=== PATIENT | male | born 1950 | race Caucasian/White ===

== ENCOUNTER 2017-06-27 15:04 | Emergency (ER) | payer MEDICARE, SELFPAY ==
[2017-06-27 15:05] VITALS: BP 154/87; PULSE 71; RESP 16; TEMP 36.2; O2SAT 94; BMI 33.8
--- NOTE | 2017-06-27 15:53 | ED.DCSUM_ITS ---
- ER Visit Summary Date of Service: 06/27/17 Chief Complaint: Constipation History of Present Illness: The patient is a 67 M who states he was trying of a bowel movement today and feels like stool is stuck. He complains of rectal pressure. He denies any bleeding from straining. He has a history of intermittent constipation. He does not take anything daily for this. He states his last normal bowel movement was yesterday. He tells me that his last colonoscopy was not too long ago and was unremarkable. Physical Examination: Vital signs are unremarkable. Head neck examination is normal. Heart is regular rate and rhythm. Lung sounds are clear. Abdomen is soft and distended but nontender to palpation. He has active bowel sounds throughout. Rectal examination reveals stool in the rectal vault at the distal fingertip. No hemorrhoids are noted. Test Results: [] Emergency Department Course and Treatment: Soapsuds enema was performed with good results. Treatment Plan: [] Disposition: Discharge Impression: Constipation This note was generated with [employer] dictation software. It may contain incorrect words, spelling, and punctuation that were not noted in review of the chart prior to signing ED Disposition - Plan for ED Patient: Chief Complaint: Constipation Referrals: Cornel Abreu MD [Primary Care Provider] -
[2017-06-27 17:20] VITALS: BP 129/84; PULSE 77; RESP 16; O2SAT 98
--- NOTE | 2017-06-27 17:29 | ED.DEP ---
ED Disposition - Plan for ED Patient: Disposition: Home or Assisted Living Chief Complaint: Constipation Instructions: ED Constipation Referrals: Cornel Abreu MD [Primary Care Provider] - As Needed
[2017-06-27 17:37] VITALS: BP 117/67; PULSE 58; RESP 16; O2SAT 98
== END 2017-06-27 17:38 | disposition home or self-care (01) ==
PROVIDERS: Emergency Provider Emergency Medicine; Family Provider Family Medicine; PCP Family Medicine
DX: K59.00 Constipation, unspecified (principal); J98.6 Disorders of diaphragm; Z79.899 Other long term (current) drug therapy; Z87.891 Personal history of nicotine dependence
CPT/HCPCS: 99284

== ENCOUNTER 2017-11-12 19:13 | Inpatient (IN) | payer MEDICARE, SELFPAY ==
[2017-11-12] VITALS (9 sets, daily range): BP systolic 123–169; BP diastolic 10–100; PULSE 65–77; RESP 18; TEMP 36.5–36.6; O2SAT 87–98; BMI 33.7; BMI 33.3
--- NOTE | 2017-11-12 19:33 | ED.VISSUMM ---
- ER Visit Summary Date of Service: 11/12/17 Chief Complaint: Chest pain History of Present Illness: The patient is a 67 M presenting with chest pain which started 1.5 hours prior to arrival. Patient has midsternal chest pain radiating through to his back. He denies shortness of breath, nausea, diaphoresis. He states he felt lightheaded but did not pass out. He denies PE/DVT risk factors. He has a history of hypercholesterolemia. He is not a smoker. Physical Examination: Vitals are stable. Patient is afebrile. Alert no acute distress. HEENT exam is unremarkable. Neck is supple. Lungs are clear and equal bilaterally. Heart is regular rate and rhythm. Abdomen is soft nontender nondistended. Extremities are unremarkable. Skin is warm and dry. No focal neurologic deficit. Remainder of exam is unremarkable. Emergency Department Course and Treatment: Patient given aspirin, morphine, Zofran. EKG is sinus rate is [address]-T changes. CBC normal except for hemoglobin 12.2. Chemistries show sodium 133, glucose 127, BUN 21, creatinine 1.77. AST 91, lipase is normal. Troponin 0.022. On reevaluation patient is chest pain-free. Will discuss with the hospitalist for observation. Disposition: Admission Impression: Chest pain This note was generated with [employer] dictation software. It may contain incorrect words, spelling, and punctuation that were not noted in review of the chart prior to signing ED Disposition - Plan for ED Patient: Chief Complaint: Chest Pain Referrals: Cornel Abreu MD [Primary Care Provider] -
[2017-11-12 19:41] LABS: Absolute Lymphocyte Count 0.78 X10^3/ul (0.83-4.51); Absolute Neutrophil Count 8.1 X10^3/uL (2.0-7.7); Basophil# 0.02 X10^3/uL; Basophil% 0.2 % (0-1); Eosinophil# 0.09 X10^3/uL; Eosinophils% 0.9 % (0-5); Hematocrit 37.6 % (40-54); Hemoglobin 12.2 g/dl (13.0-16.5); Lymphocyte # 0.78 X10^3/ul (4.0); Lymphocyte % 8.1 % (19-41); Mean Corp Hgb Conc 32.4 g/gl (32-36); Mean Corpuscular Hgb 31.8 pg (27.0-32.0); Mean Corpuscular Volume 97.9 fL (80-94); Mean Platelet Vol. 9.2 fl (6.2-12.0); Monocyte# 0.64 X10^3/uL; Monocyte% 6.6 % (0-10); Neutrophil # 8.09 X10^3/uL (2.7-7.7); Neutrophil % 84.1 % (47-70); POSITIVE COUNT NO; POSITIVE DIFFERENTIAL NO; POSITIVE MORPHOLOGY NO; Platelet Count 192 K/mm3 (150-450); RBC Distribution Width CV 13.6 % (11.6-14.6); RBC Distribution Width SD 48.6 fl (35.1-43.9); Red Blood Count 3.84 M/mm3 (4.6-6.2); White Blood Count 9.6 K/mm3 (4.4-11.0)
[2017-11-12] MEDS: Aspirin 81 MG TAB.CHEW 324 MG PO (19:46)
[2017-11-12] MEDS: Morphine 4 MG/ML Syringe IV (19:46)
[2017-11-12] MEDS: Ondansetron 4 MG/2 ML Vial IV (19:47)
--- NOTE | 2017-11-12 19:47 | ED.RN ---
COMPUTER IN ROOM NOT WORKING. TRIED TO RESTART, STILL NOT WORKING. COULD NOT SCAN MEDICATIONS.
[2017-11-12 19:58] LABS: AST(SGOT) 91 U/L (15-37); Alanine Aminotransfer ALT/SGPT 49 U/L (16-61); Albumin, Serum 4.3 g/dL (3.2-5.0); Alkaline Phosphatase 65 U/L (45-117); Anion Gap 11 (5-15); BUN 21 mg/dL (7-18); BUN/Creat Ratio 11.9 RATIO (10-20); Bilirubin, Direct 0.11 mg/dL (0.00-0.30); Calcium,Total 8.9 mg/dL (8.5-10.1); Chloride 91 mmol/L (98-107); Creatinine, Serum 1.77 mg/dL (0.70-1.30); EST Glomerular Filtration Rate 41 mL/min (>60); Est Glom Filt Rate - Afr Amer 50 mL/min (>60); Estimated Creatinine Clearance 42.39 ml/min; Globulin 3.3 g/dL (2.2-4.2); Glucose 127 mg/dL (74-106); Lipase 169 U/L (73-393); Potassium 4.4 mmol/L (3.5-5.1); Protein, Total 7.6 g/dL (6.4-8.2); Sodium Level 133 mmol/L (136-145)
--- NOTE | 2017-11-12 20:21 | NURSING ---
Called ED activity specialist, Erica at this time to confirm Pt okay to come to PCU.
--- NOTE | 2017-11-12 20:26 | PCM.HP.STD ---
Problem List (1) Atypical chest pain Status: Acute (2) Dyslipidemia Status: Chronic (3) Hypertension Status: Chronic (4) Right hemidiaphragm palsy Status: Chronic History of Present Illness Date of Admission: 11/12/17 Chief Complaint: Chest pain today The patient is a 67 year old M with history of dyslipidemia came to ER with sudden onset of chest pain about 6 PM today, heaviness in quality, located at midsternal with radiation to back. He felt dizzy, lightheaded but did not pass out. He has chronic shortness of breath secondary to right hemidiaphragm palsy and shortness of breath got little worse at the time of chest pain. No diaphoresis. He denies previous history of coronary artery disease/[place]/arrhythmia. In ED his blood pressure was noted high, 169/10, heart rate 77/min with no hypoxia. Chest x-ray does not show widened mediastinum and reported as no acute chest disease. EKG shows normal sinus rhythm [address]pm with nonspecific [address]-T changes (slight ST elevation in V1 and V2 but less than 0.5 mm) in V1 and V2. Past Medical History Past Medical History (Chronic Problems): Chronic Problems Dyslipidemia (Chronic) Hypertension (Chronic) Right hemidiaphragm palsy (Chronic) Allergies No Known Allergies Allergy (Verified 05/08/13 00:18) Home Medications: Ambulatory Orders Medication Instructions Recorded Albuterol Inhaler [Ventolin Hfa 1 puff INHALATION Q4H PRN PRN 08/07/15 (SP)] Cholecalciferol (VIT D3) [Vitamin 1,000 unit PO DAILY 08/07/15 D] Viola Root [Viola] 1 tab PO DAILY 08/07/15 Ginkgo Biloba 40 mg PO DAILY 08/07/15 Glucosam/Chondroit/C/Manganese 1 each PO DAILY 08/07/15 [Cosamin Ds Capsule] Grape Seed Extract [Grape Seed] 25 mg PO DAILY 08/07/15 Multivitamin [Daily Multiple 1 each PO DAILY 08/07/15 Vitamin] [place] Le[place] Extract 1 tab PO DAILY 08/07/15 Pomagranite Extract 1 tab PO DAILY 08/07/15 Salpameto 1 tab PO DAILY 08/07/15 Termeric 1 tab PO DAILY 08/07/15 Milk Thistle Seed Extract [Milk 87.5 mg PO DAILY 11/12/17 Thistle Extract] Tumeric 1 capsule PO DAILY 11/12/17 Smoking Status: Former smoker - *Family History Paternal History Items: Heart Disease Maternal History Items: Heart Disease Review of Systems Constitutional: Denies: Chills, Fever, Weight Change HEENT: Denies: Head Aches, Sinus Congestion, Sinus Drainage Cardiovascular: Reports: Chest Pain, Chest Pressure, Edema. Denies: Palpitations Respiratory: Reports: Shortness of Breath, Shortness of breath upon exertion. Denies: Cough, Shortness of breath at rest, Sputum production Gastrointestinal: Denies: Abdominal Pain, Nausea, Vomiting Genitourinary: Denies: Dysuria Musculoskeletal: Denies: Joint Pain, Joint Tenderness Skin: Denies: Rash, Wounds Neurological: Denies: Numbness, Tingling, Focal weakness Psychiatric: Denies: Anxiety, Depression, Homicidal Ideations, Suicidal Ideations Hematologic/ Lymphatic: Denies: Easy Bruising, Easy Bleeding VTE Information - Inpt Only VTE Present on Admission: No VTE Mechan Device Prophylaxis: None VTE Pharm Prophylaxis ordered?: Yes Patient Problems: Active and Suspected Problems Atypical chest pain (Acute) - Physical Exam General: Alert, Oriented x3, Cooperative HEENT: Atraumatic, PERRLA, EOMI, Normocephalic Oral: Moist Mucosa Neck: Supple, No JVD, Negative Carotid Bruits, - Lungs: Clear to auscultation, No rhonchi, No wheeze, No rales, Diminished - Air entry diminished in right lung base Cardiovascular: Regular rate, Regular Rhythm, Normal S1, Normal S2, No murmurs, - - Radial pulses on bilaterally symmetrical with equal volume Abdomen: Bowel Sounds Present, Soft, Non Tender, Non-Distended Extremities: Capillary Refill Less than 3 Seconds, Edema Skin: No rashes, No breakdown Musculoskeletal: No Tenderness to Palpation of Joints or Extremities, Arthritic Changes Neurological: Cranial nerves II-XII grossly intact Psych/Mental Status: Normal Affect, Appropriate Vital Signs Temp Pulse Resp BP Pulse Ox 97.7 F L 75 18 123/84 H 88 11/12/17 19:14 11/12/17 20:13 11/12/17 20:13 11/12/17 20:13 11/12/17 20:13 Oxygen Flow Rate (L/min) 2 Oxygen Delivery Method Nasal Cannula Weight: 234 lb 12.677 oz Body Mass Index (BMI) 33.7 Laboratory Tests Past 24 Hrs 11/12/17 11/12/17 19:28 19:28 WBC 9.6 RBC 3.84 L Hgb 12.2 L Hct 37.6 L MCV 97.9 H MCH 31.8 MCHC 32.4 RDW 13.6 RDW Differential 48.6 H Plt Count 192 MPV 9.2 Immature Gran % (Auto) 0.100 Neut % (Auto) 84.1 H Lymph % (Auto) 8.1 L [place] % (Auto) 6.6 Eos % (Auto) 0.9 Baso % (Auto) 0.2 Absolute Neuts (auto) 8.1 H Absolute Lymphs (auto) 0.78 L Total Counted Not Reportable Sodium 133 L Potassium 4.4 Chloride 91 L Carbon Dioxide 31.0 Anion Gap 11 BUN 21 H Creatinine 1.77 H Estim Creat Clear Calc 42.39 Est GFR (MDRD) Af Amer 50 L Est GFR (MDRD) Non-Af 41 L BUN/Creatinine Ratio 11.9 Glucose 127 H Calcium 8.9 Total Bilirubin 0.50 Direct Bilirubin 0.11 AST 91 H ALT 49 Alkaline Phosphatase 65 Troponin I 0.022 Total Protein 7.6 Albumin 4.3 Globulin 3.3 Lipase 169 Assessment/Plan All Active Problems Atypical chest pain (Acute) The patient is a 67 year old M with history of dyslipidemia came to ER with sudden onset of chest pain about 6 PM today, heaviness in quality, located at midsternal with radiation to back. He felt dizzy, lightheaded but did not pass out. He has chronic shortness of breath secondary to right hemidiaphragm palsy and shortness of breath got little worse at the time of chest pain. No diaphoresis. He denies previous history of coronary artery disease/[place]/arrhythmia. In ED his blood pressure was noted high, 169/10, heart rate 77/min with no hypoxia. Chest x-ray does not show widened mediastinum and reported as no acute chest disease. EKG shows normal sinus rhythm [address] nons[address]-T changes (slight ST elevation in V1 and V2 but less than 0.5 mm) in V1 and V2. 1. Atypical chest pain rule out acute coronary syndrome: PHYLLIS risk score 3/7. Patient is being admitted on PCU floor. On ACS protocol with cardiac monitoring, cycle cardiac enzymes, nitro sublingual as needed for chest pain. If troponins are negative, Lexiscan nuclear stress test tomorrow morning. 2. Elevated blood pressure, possible undiagnosed hypertension: Patient is not on any antihypertensive medications, started on lisinopril 10 mg. 3. Dyslipidemia: As per the patient, atorvastatin was discontinued because of abnormal blood test, guessing most rarely because of elevated LFT. AST 91 on the right wrist is normal. CK ordered. Fasting lipid profile tomorrow a.m. Pravastatin 40 mg at bedtime daily. If cholesterols are elevated, pravastatin is to be continue as is the elevation is less than 3 times of normal. Patient denies myalgia. 4. Hyperglycemia, rule out diabetes mellitus: Glucose in BMP is 127. A1c tomorrow a.m. 5. Other chronic comorbidities include chronic right-sided hemidiaphragm palsy, etiology unclear, low vitamin D, bilateral degenerative joint disease: Home medication reconciliation done. Patient is on albuterol inhaler as needed. Patient is on multiple herbal/homeopathic medications [id number]. Hold herbal medications. DVT prophylaxis: On Lovenox 40 mils subcu daily Laboratory Results 11/12/17 19:28: WBC 9.6, RBC 3.84 L, Hgb 12.2 L, Hct 37.6 L, MCV 97.9 H, MCH 31.8, MCHC 32.4, RDW 13.6, RDW Differential 48.6 H, Plt Count 192, MPV 9.2, Immature Gran % (Auto) 0.100, Neut % (Auto) 84.1 H, Lymph % (Auto) 8.1 L, [place] % (Auto) 6.6, Eos % (Auto) 0.9, Baso % (Auto) 0.2, Absolute Neuts (auto) 8.1 H, Absolute Lymphs (auto) 0.78 L, Total Counted Not Reportable 11/12/17 19:28: Sodium 133 L, Potassium 4.4, Chloride 91 L, Carbon Dioxide 31.0, Anion Gap 11, BUN 21 H, Creatinine 1.77 H, Estim Creat Clear Calc 42.39, Est GFR (MDRD) Af Amer 50 L, Est GFR (MDRD) Non-Af 41 L, BUN/Creatinine Ratio 11.9, Glucose 127 H, Calcium 8.9, Total Bilirubin 0.50, Direct Bilirubin 0.11, AST 91 H, ALT 49, Alkaline Phosphatase 65, Troponin I 0.022, Total Protein 7.6, Albumin 4.3, Globulin 3.3, Lipase 169 Code Visit OBSV E&M: [id number] Initial observation care L3
--- NOTE | 2017-11-12 20:32 | HP.PCM_ITS ---
Problem List (1) Atypical chest pain Status: Acute (2) Dyslipidemia Status: Chronic (3) Hypertension Status: Chronic (4) Right hemidiaphragm palsy Status: Chronic History of Present Illness Date of Admission: 11/12/17 Chief Complaint: Chest pain today The patient is a 67 year old M with history of dyslipidemia came to ER with sudden onset of chest pain about 6 PM today, heaviness in quality, located at midsternal with radiation to back. He felt dizzy, lightheaded but did not pass out. He has chronic shortness of breath secondary to right hemidiaphragm palsy and shortness of breath got little worse at the time of chest pain. No diaphoresis. He denies previous history of coronary artery disease/[place]/arrhythmia. In ED his blood pressure was noted high, 169/10, heart rate 77/min with no hypoxia. Chest x-ray does not show widened mediastinum and reported as no acute chest disease. EKG shows normal sinus rhythm [address]-T changes ( slight ST elevation in V1 and V2 but less than 0.5 mm) in V1 and V2. Past Medical History Past Medical History (Chronic Problems): Chronic Problems Dyslipidemia (Chronic) Hypertension (Chronic) Right hemidiaphragm palsy (Chronic) Allergies No Known Allergies Allergy (Verified 05/08/13 00:18) Home Medications: Ambulatory Orders Medication Instructions Recorded Albuterol Inhaler [Ventolin Hfa 1 puff INHALATION Q4H PRN PRN 08/07/15 (SP)] Cholecalciferol (VIT D3) [Vitamin 1,000 unit PO DAILY 08/07/15 D] Viola Root [Viola] 1 tab PO DAILY 08/07/15 Ginkgo Biloba 40 mg PO DAILY 08/07/15 Glucosam/Chondroit/C/Manganese 1 each PO DAILY 08/07/15 [Cosamin Ds Capsule] Grape Seed Extract [Grape Seed] 25 mg PO DAILY 08/07/15 Multivitamin [Daily Multiple 1 each PO DAILY 08/07/15 Vitamin] [place] Le[place] Extract 1 tab PO DAILY 08/07/15 Pomagranite Extract 1 tab PO DAILY 08/07/15 Salpameto 1 tab PO DAILY 08/07/15 Termeric 1 tab PO DAILY 08/07/15 Milk Thistle Seed Extract [Milk 87.5 mg PO DAILY 11/12/17 Thistle Extract] Tumeric 1 capsule PO DAILY 11/12/17 Smoking Status: Former smoker - *Family History Paternal History Items: Heart Disease Maternal History Items: Heart Disease Review of Systems Constitutional: Denies: Chills, Fever, Weight Change HEENT: Denies: Head Aches, Sinus Congestion, Sinus Drainage Cardiovascular: Reports: Chest Pain, Chest Pressure, Edema. Denies: Palpitations Respiratory: Reports: Shortness of Breath, Shortness of breath upon exertion. Denies: Cough, Shortness of breath at rest, Sputum production Gastrointestinal: Denies: Abdominal Pain, Nausea, Vomiting Genitourinary: Denies: Dysuria Musculoskeletal: Denies: Joint Pain, Joint Tenderness Skin: Denies: Rash, Wounds Neurological: Denies: Numbness, Tingling, Focal weakness Psychiatric: Denies: Anxiety, Depression, Homicidal Ideations, Suicidal Ideations Hematologic/ Lymphatic: Denies: Easy Bruising, Easy Bleeding VTE Information - Inpt Only VTE Present on Admission: No VTE Mechan Device Prophylaxis: None VTE Pharm Prophylaxis ordered?: Yes Patient Problems: Active and Suspected Problems Atypical chest pain (Acute) - Physical Exam General: Alert, Oriented x3, Cooperative HEENT: Atraumatic, PERRLA, EOMI, Normocephalic Oral: Moist Mucosa Neck: Supple, No JVD, Negative Carotid Bruits, - Lungs: Clear to auscultation, No rhonchi, No wheeze, No rales, Diminished - Air entry diminished in right lung base Cardiovascular: Regular rate, Regular Rhythm, Normal S1, Normal S2, No murmurs, - - Radial pulses on bilaterally symmetrical with equal volume Abdomen: Bowel Sounds Present, Soft, Non Tender, Non-Distended Extremities: Capillary Refill Less than 3 Seconds, Edema Skin: No rashes, No breakdown Musculoskeletal: No Tenderness to Palpation of Joints or Extremities, Arthritic Changes Neurological: Cranial nerves II-XII grossly intact Psych/Mental Status: Normal Affect, Appropriate Vital Signs Temp Pulse Resp BP Pulse Ox 97.7 F L 75 18 123/84 H 88 11/12/17 19:14 11/12/17 20:13 11/12/17 20:13 11/12/17 20:13 11/12/17 20:13 Oxygen Flow Rate (L/min) 2 Oxygen Delivery Method Nasal Cannula Weight: 234 lb 12.677 oz Body Mass Index (BMI) 33.7 Laboratory Tests Past 24 Hrs 11/12/17 11/12/17 19:28 19:28 WBC 9.6 RBC 3.84 L Hgb 12.2 L Hct 37.6 L MCV 97.9 H MCH 31.8 MCHC 32.4 RDW 13.6 RDW Differential 48.6 H Plt Count 192 MPV 9.2 Immature Gran % (Auto) 0.100 Neut % (Auto) 84.1 H Lymph % (Auto) 8.1 L [place] % (Auto) 6.6 Eos % (Auto) 0.9 Baso % (Auto) 0.2 Absolute Neuts (auto) 8.1 H Absolute Lymphs (auto) 0.78 L Total Counted Not Reportable Sodium 133 L Potassium 4.4 Chloride 91 L Carbon Dioxide 31.0 Anion Gap 11 BUN 21 H Creatinine 1.77 H Estim Creat Clear Calc 42.39 Est GFR (MDRD) Af Amer 50 L Est GFR (MDRD) Non-Af 41 L BUN/Creatinine Ratio 11.9 Glucose 127 H Calcium 8.9 Total Bilirubin 0.50 Direct Bilirubin 0.11 AST 91 H ALT 49 Alkaline Phosphatase 65 Troponin I 0.022 Total Protein 7.6 Albumin 4.3 Globulin 3.3 Lipase 169 Assessment/Plan All Active Problems Atypical chest pain (Acute) The patient is a 67 year old M with history of dyslipidemia came to ER with sudden onset of chest pain about 6 PM today, heaviness in quality, located at midsternal with radiation to back. He felt dizzy, lightheaded but did not pass out. He has chronic shortness of breath secondary to right hemidiaphragm palsy and shortness of breath got little worse at the time of chest pain. No diaphoresis. He denies previous history of coronary artery disease/[place]/arrhythmia. In ED his blood pressure was noted high, 169/10, heart rate 77/min with no hypoxia. Chest x-ray does not show widened mediastinum and reported as no acute chest disease. EKG shows normal sinus rhythm [address]-T changes ( slight ST elevation in V1 and V2 but less than 0.5 mm) in V1 and V2. 1. Atypical chest pain rule out acute coronary syndrome: PHYLLIS risk score 3/7. Patient is being admitted on PCU floor. On ACS protocol with cardiac monitoring , cycle cardiac enzymes, nitro sublingual as needed for chest pain. If troponins are negative, Lexiscan nuclear stress test tomorrow morning. 2. Elevated blood pressure, possible undiagnosed hypertension: Patient is not on any antihypertensive medications, started on lisinopril 10 mg. 3. Dyslipidemia: As per the patient, atorvastatin was discontinued because of abnormal blood test, guessing most rarely because of elevated LFT. AST 91 on the right wrist is normal. CK ordered. Fasting lipid profile tomorrow a.m. Pravastatin 40 mg at bedtime daily. If cholesterols are elevated, pravastatin is to be continue as is the elevation is less than 3 times of normal. Patient denies myalgia. 4. Hyperglycemia, rule out diabetes mellitus: Glucose in BMP is 127. A1c tomorrow a.m. 5. Other chronic comorbidities include chronic right-sided hemidiaphragm palsy , etiology unclear, low vitamin D, bilateral degenerative joint disease: Home medication reconciliation done. Patient is on albuterol inhaler as needed. Patient is on multiple herbal/homeopathic medications [id number]. Hold herbal medications. DVT prophylaxis: On Lovenox 40 mils subcu daily Laboratory Results 11/12/17 19:28: WBC 9.6, RBC 3.84 L, Hgb 12.2 L, Hct 37.6 L, MCV 97.9 H, MCH 31.8, MCHC 32.4, RDW 13.6, RDW Differential 48.6 H, Plt Count 192, MPV 9.2, Immature Gran % (Auto) 0.100, Neut % (Auto) 84.1 H, Lymph % (Auto) 8.1 L, [place] % (Auto) 6.6, Eos % (Auto) 0.9, Baso % (Auto) 0.2, Absolute Neuts (auto) 8.1 H, Absolute Lymphs (auto) 0.78 L, Total Counted Not Reportable 11/12/17 19:28: Sodium 133 L, Potassium 4.4, Chloride 91 L, Carbon Dioxide 31.0 , Anion Gap 11, BUN 21 H, Creatinine 1.77 H, Estim Creat Clear Calc 42.39, Est GFR (MDRD) Af Amer 50 L, Est GFR (MDRD) Non-Af 41 L, BUN/Creatinine Ratio 11.9, Glucose 127 H, Calcium 8.9, Total Bilirubin 0.50, Direct Bilirubin 0.11, AST 91 H, ALT 49, Alkaline Phosphatase 65, Troponin I 0.022, Total Protein 7.6, Albumin 4.3, Globulin 3.3, Lipase 169 Code Visit OBSV E&M: [id number] Initial observation care L3
[2017-11-12 21:21] LABS: BNP,B-Type NATRIURETIC PEPTIDE 34.7 pg/mL (0-100)
[2017-11-12] MEDS: Lisinopril 5 MG Tablet PO (22:21)
[2017-11-12] MEDS: Pravastatin 40 MG Tablet PO ×2 (22:21→23:35)
[2017-11-12] MEDS: Enoxaparin 40 MG/0.4 ML Syringe SC (22:21)
[2017-11-12] MEDS: Carvedilol 6.25 MG Tablet PO (23:35)
[2017-11-12] MEDS: Clopidogrel Bisulfate 300 MG Tablet PO (23:35)
[2017-11-12] MEDS: Nitroglycerin Oint 1 INCH PACKET TRANSDERM. (23:36)
[2017-11-13] VITALS (25 sets, daily range): BP systolic 65–155; BP diastolic 35–90; PULSE 47–98; RESP 14–21; TEMP 36.2–36.8; O2SAT 2–98
[2017-11-13 00:04] LABS: Partial Thromboplast Time 32.7 Seconds (24.1-36.2)
[2017-11-13] MEDS: Lisinopril 5 MG Tablet PO (05:44)
[2017-11-13] MEDS: Aspirin E.C. 81 MG Tablet PO (05:44)
[2017-11-13] MEDS: Clopidogrel Bisulfate 75 MG Tablet PO (05:44)
[2017-11-13] MEDS: Nitroglycerin Oint 1 INCH PACKET TRANSDERM. ×2 (05:44→18:12)
[2017-11-13] MEDS: Carvedilol 6.25 MG Tablet PO (05:44)
[2017-11-13 06:01] LABS: Hematocrit 35.9 % (40-54); Hemoglobin 11.8 g/dl (13.0-16.5); Mean Corp Hgb Conc 32.9 g/gl (32-36); Mean Corpuscular Hgb 32.2 pg (27.0-32.0); Mean Corpuscular Volume 98.1 fL (80-94); Mean Platelet Vol. 9.7 fl (6.2-12.0); Platelet Count 203 K/mm3 (150-450); RBC Distribution Width CV 13.4 % (11.6-14.6); RBC Distribution Width SD 46.9 fl (35.1-43.9); Red Blood Count 3.66 M/mm3 (4.6-6.2); White Blood Count 7.9 K/mm3 (4.4-11.0)
[2017-11-13 06:05] LABS: Scan Indicated on CBC? Y/N NO
[2017-11-13 06:09] LABS: International Normalized Ratio 1.1; Prothrombin Time (Protime)PT. 13.7 SECONDS (11.7-14.9)
[2017-11-13 06:54] LABS: Hemoglobin A1c 5.8 % (4.2-6.3)
[2017-11-13 06:59] LABS: Anion Gap 11 (5-15); BUN 21 mg/dL (7-18); BUN/Creat Ratio 16.2 RATIO (10-20); CPK Total, Creatine Kinase 1431 U/L (39-308); Calcium,Total 8.7 mg/dL (8.5-10.1); Chloride 91 mmol/L (98-107); Cholesterol 208 mg/dL (200); EST Glomerular Filtration Rate 59 mL/min (>60); Est Glom Filt Rate - Afr Amer 71 mL/min (>60); Estimated Creatinine Clearance 57.71 ml/min; Glucose 105 mg/dL (74-106); High Density Lipoprotein 50 mg/dL; Potassium 4.5 mmol/L (3.5-5.1); Sodium Level 132 mmol/L (136-145); Triglycerides 86 mg/dL; Very Low Density Lipoprotein 17 mg/dL (5-40)
[2017-11-13] MEDS: Multivitamins,Therapeutic Tablet 1 TABLET PO (07:45)
[2017-11-13 08:03] LABS: Color, Urine Yellow (Yellow); Glucose, Dipstick Normal (Normal); Ketone-Dipstick Negative (Negative); Leukocyte Esterase-Dipstick Negative /ul (Negative); Nitrite-Dipstick Negative (Negative); Occult Blood-Urine Negative /ul (Negative); Protein-Dipstick 15 mg/dl (Negative); Specific Gravity, Urine 1.025 (1.002-1.030); Urine Bilirubin Dipstick Negative (Negative); Urine Clarity Clear (Clear); Urine Urobilinogen Normal (Normal)
[2017-11-13] MEDS: Acetaminophen 325 MG Tablet 650 MG PO ×2 (09:34→19:44)
--- NOTE | 2017-11-13 10:19 | NURSING ---
this RN received call from Jos PINEDA in pathology laboratory technologist. Jos RN notified this RN that he will be coming to get pt for pathology laboratory technologist in a couple of minutes and for this RN to turn off heparin gtt at this time. heparin gtt turned off and NS set to KVO at this time. Sina BSN RN
--- NOTE | 2017-11-13 10:32 | PCM.PN.HOSP ---
Patient Problems: Active and Suspected Problems Atypical chest pain (Acute) Subjective: Seen and examined. He was admitted with a complaint of chest pain. Initial troponin was negative repeat troponin came back at 0.937 and has been managed for NSTEMI. He was started on aspirin, Plavix and heparin drip. Cardiology is on board and is scheduled for left heart cath later today. Patient seen and examined this morning. His was at his bedside during review. He had no complaints and felt well. Chest pain had resolved he denied any fever or chills, any shortness of breath, abdominal pain, any diarrhea vomiting. He was n.p.o. pending left heart cath later today. 12 point review of systems was otherwise negative. Vitals/I&O's: Vital Signs Temp Pulse Resp BP Pulse Ox 97.6 F L 57 L 16 105/61 97 11/13/17 08:55 11/13/17 08:55 11/13/17 08:55 11/13/17 08:55 11/13/17 08:55 Oxygen Flow Rate (L/min) 2 Oxygen Delivery Method Room Air Weight: 232 lb 2.348 oz Body Mass Index (BMI) 33.3 Intake and Output for Last 24 Hours 11/11/17 11/12/17 11/13/17 23:59 23:59 23:59 Intake Total 213.7 / 213.7 Balance 213.7 / 213.7 General: Alert, Oriented x3, Cooperative, No apparent distress HEENT: Atraumatic, PERRLA, EOMI, Normocephalic Oral: Moist Mucosa Neck: Supple, No JVD, Negative Carotid Bruits Lungs: Clear to auscultation, Normal air movement, No rhonchi, No wheeze, No rales Cardiovascular: Regular rate, Regular Rhythm, Normal S1, Normal S2, No murmurs Abdomen: Bowel Sounds Present, Soft, Non Tender, Non-Distended, No Hepato-splenomegaly, Obese Extremities: No clubbing, No cyanosis, No edema, Capillary Refill Less than 3 Seconds Skin: No rashes, No breakdown Musculoskeletal: No Tenderness to Palpation of Joints or Extremities Lymphatic: No Cervical, Supraclavicular, or Inguinal Adenopathy Neurological: Cranial nerves II-XII grossly intact, Motor Exam 5/5 strength throughout Psych/Mental Status: Normal Affect, Appropriate, Alert and oriented to time, place, person, mood and affect Laboratory Results 11/12/17 22:12: Troponin I 0.937 H* 11/12/17 23:35: APTT 32.7 11/13/17 01:35: Troponin I 3.480 H* 11/13/17 05:40: Sodium 132 L, Potassium 4.5, Chloride 91 L, Carbon Dioxide 30.0, Anion Gap 11, BUN 21 H, Creatinine 1.30, Estim Creat Clear Calc 57.71, Est GFR (MDRD) Af Amer 71, Est GFR (MDRD) Non-Af 59 L, BUN/Creatinine Ratio 16.2, Glucose 105, Calcium 8.7, Total Creatine Kinase 1431 H, Triglycerides 86, Cholesterol 208 H, LDL Cholesterol 141 H, VLDL Cholesterol 17, HDL Cholesterol 50, TSH 127.00 H 11/13/17 05:40: Hemoglobin A1c 5.8 11/13/17 05:40: WBC 7.9, RBC 3.66 L, Hgb 11.8 L, Hct 35.9 L, MCV 98.1 H, MCH 32.2 H, MCHC 32.9, RDW 13.4, RDW Differential 46.9 H, Plt Count 203, MPV 9.7 11/13/17 05:40: PT 13.7, INR 1.1, APTT 122.0 H* 11/13/17 07:45: Urine Color Yellow, Urine Clarity Clear, Urine pH 5.0, Ur Specific [place] 1.025, Urine Protein 15 H, Urine Glucose (UA) Normal, Urine Ketones Negative, Urine Occult Blood Negative, Urine Nitrite Negative, Urine Bilirubin Negative, Urine Urobilinogen Normal, Ur Leukocyte Esterase Negative Current Medications Acetaminophen (Tylenol) 650 mg PO Q6H PRN PRN PRN Reason: pain Last Admin: 11/13/17 09:34 Dose: 650 mg Albuterol Sulfate (Ventolin Aerosols) 2.5 mg INHALATION Q4H PRN PRN PRN Reason: SHORTNESS OF BREATH Aspirin (Ecotrin) 81 mg PO DAILY@0800 [facility] Last Admin: 11/13/17 05:44 Dose: 81 mg Carvedilol (Coreg) 6.25 mg PO BID [facility] Last Admin: 11/13/17 05:44 Dose: 6.25 mg Cholecalciferol (Vitamin D) 1,000 unit PO DAILY [facility] Last Admin: 11/13/17 07:45 Dose: 1,000 unit Clopidogrel Bisulfate (Plavix) 75 mg PO DAILY [facility] Last Admin: 11/13/17 05:44 Dose: 75 mg Heparin Sodium (Porcine) (Heparin Na) 0 unit IV UD PRN PRN Reason: Protocol Heparin Sodium/Sodium Chloride () 25,000 unit in 250 mls @ 15 mls/hr IV .[id number] [facility]; As Directed PRN Reason: Protocol Last Admin: 11/12/17 23:43 Dose: 15 mls/hr Lisinopril (Zestril) 5 mg PO DAILY [facility] Last Admin: 11/13/17 05:44 Dose: 5 mg Multivitamins (Multivitamin) 1 tablet PO DAILYCM [facility] Last Admin: 11/13/17 07:45 Dose: 1 tablet Nitroglycerin (Nitrostat) 0.4 mg SUBLINGUAL Q5M PRN PRN Reason: CHEST PAIN Nitroglycerin (Nitrobid) 1 inch TRANSDERM. Q6 [facility] Last Admin: 11/13/17 05:44 Dose: 1 inch Pravastatin Sodium (Pravachol) 80 mg PO QHS [facility] Sodium Chloride () 5 - 30 ml IV UD PRN PRN Reason: SALINE FLUSH Medical Necessity - Tobacco Use Smoking Status: Former smoker Assessment/Plan All Active Problems Atypical chest pain (Acute) 1. NSTEMI Was admitted with a complaint of chest pain. Initial troponin was negative but subsequent troponin trended up to 0.937->3.[address] elevation in V1 and V2 but this was less than 0.5 mm. Started on heparin drip and given loading dose of Plavix after rising troponin. Lisinopril 10 mg daily and beta-rick. cardiology on board. For left heart cath later today. Currently n.p.o. will order 2D echo 2. Newly diagnosed hypertension She does have a history of high blood pressure. Blood pressure was elevated on admission. Was started on lisinopril 10 mg daily. Blood pressure this morning is 105/61. Will monitor. 3. Hyperlipidemia was on pravastatin 40mg qhs on admission States was DC'd due to abnormal labs. Liver enzymes were only slightly elevated. CPK checked was 1431. was put on pravastatin 80mg qhs. Will hold o/a of rhabdomyolysis lipid panel: cholesterol-208, LDL-141 4. Rhabdomyolysis CPK is 1431; newly diagnosed hypothyroidism could also be a contributory factor. We will give IV fluids and monitor. 5 Hyperglycemia random blood sugar was 127. A1C ordered was 5.8, ruling out DM will monitor 6. hypothyroidism patient has a flat affect and though responsive when spoken to, seemed lethargic TSH checked was 127. will check free T4 and start synthroid 7. Vitamin D deficiency will replace 8. Degenerative joint disease: Stable. 9. DVT Prophylaxis: On heparin drip This note was generated with [employer] dictation software. It may contain incorrect words, spelling, and punctuation that were not noted in checking the note before signing. Code Visit Inpatient E&M: 40771 Subs Hosp L3
[2017-11-13 11:24] LABS: T4 Free Direct 0.16 ng/dL (0.76-1.46)
--- NOTE | 2017-11-13 11:44 | NURSING ---
report called to Casi PINEDA in ICU
--- NOTE | 2017-11-13 12:52 | CASEMGMT ---
[facility], the following are in-network tertiary facilities: [facility] and . Jasmina PINEDA CM
--- NOTE | 2017-11-13 13:59 | PCM.CONS.C ---
Problem List (1) Non-STEMI (non-ST elevated myocardial infarction) Status: Acute (2) Coronary artery disease Status: Acute (3) LV dysfunction Status: Acute (4) Dyslipidemia Status: Chronic (5) Hypertension Status: Chronic (6) Right hemidiaphragm palsy Status: Chronic Reason for Consult Date of Consultation: 11/13/17 Reason for Consultation: Hyperlipidemia, hypertension, non-STEMI, chest pain, coronary artery disease, LV dysfunction, right-sided diaphragmatic palsy, hypothyroidism History of Present Illness: The patient is a 67 year old M, nondiabetic, previous smoker who quit more than 10 years ago after an 8-pack-year history, with hypertension, hypercholesterolemia apparently with difficulty with statins in the past due to elevated LFTs, no previous known coronary artery disease. Patient also interestingly has a history of right-sided hemidiaphragmatic palsy due to a pneumonia several years ago according to the family. Upon meeting the patient I noted that he had slow mentation, slow speech, and gave slow answers to his questions. First I thought it was due to either receiving morphine, benzodiazepine, or Benadryl but he had received none of these in the recent past. Upon further research his TSH is markedly elevated at 124, and his T4 is 0.16 indicating he is significantly hypothyroid. In addition after talking with his and family it appears that he has had gradually slowing of his mentation, energy level, and in fact recently tried to get a part-time job but was unable to do it as he could not work the [employer] fast enough. At approximately 6 PM last evening the patient developed unstable anginal symptoms that she described as chest heaviness, which were initially resolved with morphine and nitroglycerin. His initial EKG showed normal sinus rhythm with low voltage, sinus bradycardia, no acute changes. His initial troponin was negative but then increase to 0.9, and then to 3.48. He was treated with baby aspirin, loaded with Plavix, and treated with IV heparin. His chest pain did not return overnight. This morning he underwent an elective diagnostic coronary angiogram which demonstrated severe left-sided coronary disease with an occluded LAD, severe disease of his proximal OM #1, all #2, and mid left circumflex, nonobstructive disease of his RCA with significant right to left collaterals. His overall ejection fraction was around 45%. Intruding balloon pump was placed in order to assist with coronary perfusion as well as for assisting with anesthesia induction given his hypothyroidism. Patient was started on p.o. Synthroid and endocrine consult is pending. Patient is currently heme and apically stable. Echo is pending. [] Past Medical History Allergies/Adverse Reactions: Allergies No Known Allergies Allergy (Verified 05/08/13 00:18) Home Medications: Ambulatory Orders Medication Instructions Recorded Albuterol Inhaler [Ventolin Hfa 1 puff INHALATION Q4H PRN PRN 08/07/15 (SP)] Cholecalciferol (VIT D3) [Vitamin 1,000 unit PO DAILY 08/07/15 D] Ginkgo Biloba 40 mg PO DAILY 08/07/15 Glucosam/Chondroit/C/Manganese 1 each PO DAILY 08/07/15 [Cosamin Ds Capsule] Multivitamin [Daily Multiple 1 each PO DAILY 08/07/15 Vitamin] Salpameto 1 tab PO DAILY 08/07/15 Tumeric 1 capsule PO DAILY 11/12/17 Past Medical History (Chronic Problems): Chronic Problems Dyslipidemia (Chronic) Hypertension (Chronic) Right hemidiaphragm palsy (Chronic) - *Family History Paternal History Items: Heart Disease Maternal History Items: Heart Disease Smoking Status: Former smoker Review of Systems - Review of Systems General: Denies: Fever, Night Sweats, Fatigue Cardiovascular: Reports: Chest Discomfort at Rest. Denies: Chest Discomfort, Shortness of Breath, Orthopnea, PND, Peripheral Edema, Palpitations, Lightheadedness, Dizziness, Near Syncope, Syncope Respiratory: Denies: Cough, Sputum Production, Hemoptysis Gastrointestinal: Denies: Hematemesis, Hematochezia, Melena Genitourinary: Denies: Dysuria, Hematuria Skin: Denies: Rash Subjectve: Patient laying in bed, no acute distress. Does demonstrate slow mentation, slow response to questions, slow speech. Objective: Vital Signs Temp Pulse Resp BP Pulse Ox 97.6 F L 56 L 16 105/61 97 11/13/17 08:55 11/13/17 10:39 11/13/17 08:55 11/13/17 08:55 11/13/17 08:55 General: Awake, Alert, Oriented x 3 HEENT: PERRL, EOMI, Sclera Non Icteric Neck: Supple, Good ROM, No Lymph Node Enlargement Lungs: Clear to auscultation Cardiovascular: Regular Rhythm, Normal S1, Normal S2, No Murmurs, No Rubs, No Gallops Rhythm: EKG: As above ECHO: Pending Stress Test: Cardiac Cath: As above PCI: CT Surgery: Holter monitor: EPS: PPM: CXR: Chest CT Scan: Assessment/Plan 1. Coronary artery disease: The patient has significant multivessel coronary artery disease with occlusion of his LAD, subtotal occlusion of his mid left circumflex, and 2 critical lesions in his OM #1 in all #2. He has fairly significant right to left collaterals, they would recommend bypass surgery to his LAD, OM1, OM 2 and posterior lateral branch of the left circumflex. An intrinsic balloon pump was placed to augment coronary perfusion and to assist with LV reduction particularly as we correct for his thyroid issues. We will discontinue his Plavix and continue baby aspirin 81 mg p.o. daily as well as Coreg 6.25 mg's p.o. twice daily with respect to his heart rate. I recommended that the patient have a endocrine consultation to assist with correcting his thyroid and possibly other glandular issues as well. We will leave any additional endocrine workup to endocrine consultation. Patient may require IV Synthroid therapy. His thyroid issues will need to be at least marginally corrected prior to bypass surgery. Although the patient has an elevated right-sided hemidiaphragm due to apparent right-sided paresis due to previous pneumonia, it appears his left diaphragm is working fine. This may make extubation more problematic than usual, but hopefully this will not be an issue going forward. I have asked social work to review where the patient can go for referral, and I will contact Dr. Jeffries at [facility] to assist with transfer and bypass surgery. The patient will require several days for thyroid correction as well as to allow his Plavix to get out of his system. 2. Hyperlipidemia: Patient has had a history of elevated LFTs with previous statin therapy, but appears to be tolerating Pravachol well. His LDL should be less than 70. His LDL currently is 141. Continue Pravachol for now. Would make adjustments to his statins once his thyroid has been corrected. 3. Discussed results of catheterization with the patient and his family, as well as Dr. Arevalo. Thank you very much for the opportunity to participate in the cardiac care of your patient. Consultation time took place between 10 AM and 10:35 AM. Code Visit Inpatient E&M: 24427 Init Hosp L2
[2017-11-13 14:41] LABS: ACT Activated Clotting Time 142 sec (74-137)
[2017-11-13] MEDS: 0.9% NaCl Peripheral Flush Adult/Peds IV (15:37)
[2017-11-13 16:22] LABS: M R Staph aureus DNA By PCR Negative (Negative); Probe Check PASS; Specimen Processing Control PASS
[2017-11-13] MEDS: 0.9% Normal Saline 1,000 ML 75 ML IV (20:10)
[2017-11-13 21:25] LABS: Partial Thromboplast Time 70.9 Seconds (24.1-36.2)
[2017-11-13] MEDS: Pravastatin 80 MG Tablet PO (22:58)
[2017-11-14] VITALS (28 sets, daily range): BP systolic 59–159; BP diastolic 34–99; PULSE 61–92; RESP 16–21; TEMP 36.3–36.8; O2SAT 88–100
[2017-11-14] MEDS: DOPamine IV 800 MG/250 ML IV.SOLN. 9.872 MG IV (01:18)
[2017-11-14 03:05] LABS: Absolute Lymphocyte Count 0.68 X10^3/ul (0.83-4.51); Absolute Neutrophil Count 9.5 X10^3/uL (2.0-7.7); Basophil# 0.01 X10^3/uL; Basophil% 0.1 % (0-1); Eosinophil# 0.14 X10^3/uL; Eosinophils% 1.2 % (0-5); Hemoglobin 12.6 g/dl (13.0-16.5); Lymphocyte # 0.68 X10^3/ul (4.0); Mean Corp Hgb Conc 33.2 g/gl (32-36); Mean Corpuscular Hgb 31.9 pg (27.0-32.0); Mean Corpuscular Volume 96.2 fL (80-94); Mean Platelet Vol. 9.3 fl (6.2-12.0); Monocyte% 8.8 % (0-10); Neutrophil # 9.47 X10^3/uL (2.7-7.7); Neutrophil % 83.8 % (47-70); Platelet Count 186 K/mm3 (150-450); RBC Distribution Width CV 13.2 % (11.6-14.6); Red Blood Count 3.95 M/mm3 (4.6-6.2); White Blood Count 11.3 K/mm3 (4.4-11.0)
[2017-11-14 03:07] LABS: POSITIVE COUNT NO; POSITIVE DIFFERENTIAL NO; POSITIVE MORPHOLOGY NO
[2017-11-14 03:14] LABS: Partial Thromboplast Time 68.3 Seconds (24.1-36.2)
[2017-11-14 03:17] LABS: Anion Gap 10 (5-15); BUN 20 mg/dL (7-18); Calcium,Total 8.5 mg/dL (8.5-10.1); Chloride 90 mmol/L (98-107); Creatinine, Serum 1.25 mg/dL (0.70-1.30); EST Glomerular Filtration Rate 61 mL/min (>60); Est Glom Filt Rate - Afr Amer 74 mL/min (>60); Estimated Creatinine Clearance 60.02 ml/min; Glucose 131 mg/dL (74-106); Potassium 4.1 mmol/L (3.5-5.1); Sodium Level 130 mmol/L (136-145)
[2017-11-14] MEDS: Levothyroxine 75 MCG Tablet PO (05:42)
[2017-11-14] MEDS: proMETHazine 25 MG/ML Syringe 12.5 MG IV (07:28)
[2017-11-14] MEDS: Levothyroxine 50 MCG Tablet PO (08:45)
[2017-11-14] MEDS: Aspirin E.C. 81 MG Tablet PO (08:45)
[2017-11-14] MEDS: Multivitamins,Therapeutic Tablet 1 TABLET PO (08:45)
[2017-11-14] MEDS: 0.9% Normal Saline 1,000 ML 100 ML IV (09:15)
--- NOTE | 2017-11-14 10:23 | CASEMGMT ---
RN CM Note. Per interdisciplinary rounds, pt remains on IABP. Plan is to transfer to [facility], Dr. Leija attempting to contact cardiothoracic surgeon prior to transfer. IF [facility], [facility] become transfer options, per CM are [facility] with insurance. DC Planning deferred @ this time. Stephanie HERRERAN RN ACM
--- NOTE | 2017-11-14 10:35 | PCM.PN.CARD ---
Subjectve: Patient had hypotension and bradycardia last evening despite IV fluid boluses, and intruding balloon pump. The patient was started on IV dopamine and titrated up to 5 mcg/kg/min and his blood pressure and heart rate have markedly improved. Patient's mentation is about the same as yesterday, probably slightly improved, and denies any chest pain symptoms. His intrinsic balloon pump is in the right femoral artery at 1: 1, and he has no hematoma, tenderness or abdominal pain. IV heparin drip is therapeutic for his PTT. Telemetry overnight showed normal sinus rhythm with rare PVCs. Patient was given IV Synthroid therapy 100 mcg yesterday, and will receive 250 mcg today. He was started on 120 mcg p.o. yesterday. Antihypertensive therapy has been held in light of his hypotension. Plavix has been held now for 36 hours. I attempted several times to get in contact with the surgeon at [facility], [facility] but was unable to reach him, and have decided with the patient and family to transfer him to [facility]. The transfer is pending. Objective: Vital Signs Temp Pulse Resp BP Pulse Ox 97.3 F L 79 18 126/76 H 99 11/14/17 10:00 11/14/17 10:00 11/14/17 10:00 11/14/17 10:00 11/14/17 10:00 Oxygen Flow Rate (L/min) 3 Oxygen Delivery Method Nasal Cannula Weight: 238 lb 12.17 oz Intake and Output for Last 24 Hours 11/12/17 11/13/17 11/14/17 23:59 23:59 23:59 Intake Total 162 / 975.7 3884.7 / 3884.7 Output Total 939 / 939 763 / 763 Balance -777 / 36.7 3121.7 / 3121.7 General: Awake, Alert, Oriented x 3 HEENT: PERRL, EOMI, Sclera Non Icteric Neck: Supple, Good ROM, No Lymph Node Enlargement Lungs: Clear to auscultation Cardiovascular: Regular Rhythm, Normal S1, Normal S2, No Murmurs, No Rubs, No Gallops Vascular: No Carotid Bruits, Normal Femoral Pulses, Normal Radial Pulses, Normal Dorsalis Pedal Pulse, Normal Posterior Tibial Pulses Abdomen: Bowel Sounds Present, Soft, Non Tender, No HSM, No Organomegaly Extremities: No Cyanosis, No Clubbing, No edema Neurological: No Focal Motor or Sensory Deficit 11/13/17 20:50: APTT 70.9 H 11/14/17 02:55: WBC 11.3 H, RBC 3.95 L, Hgb 12.6 L, Hct 38.0 L, MCV 96.2 H, MCH 31.9, MCHC 33.2, RDW 13.2, RDW Differential 47.0 H, Plt Count 186, MPV 9.3, Immature Gran % (Auto) 0.100, Neut % (Auto) 83.8 H, Lymph % (Auto) 6.0 L, [place] % (Auto) 8.8, Eos % (Auto) 1.2, Baso % (Auto) 0.1, Absolute Neuts (auto) 9.5 H, Total Counted Not Reportable 11/14/17 02:55: Sodium 130 L, Potassium 4.1, Chloride 90 L, Carbon Dioxide 30.0, Anion Gap 10, BUN 20 H, Creatinine 1.25, Est GFR (MDRD) Af Amer 74, Est GFR (MDRD) Non-Af 61, BUN/Creatinine Ratio 16.0, Glucose 131 H, Calcium 8.5 11/14/17 02:55: APTT 68.3 H 11/14/17 08:40: APTT 60.0 H Rhythm: EKG: ECHO: Stress Test: Cardiac Cath: PCI: CT Surgery: Holter monitor: EPS: PPM: CXR: Chest CT Scan: Medical Necessity - Tobacco Use Smoking Status: Former smoker Assessment/Plan 1. Coronary artery disease: The patient has significant multivessel coronary artery disease with occlusion of his LAD, subtotal occlusion of his mid left circumflex, and 2 critical lesions in his OM #1 in all #2. He has fairly significant right to left collaterals, and would recommend bypass surgery to his LAD, OM1, OM 2 and posterior lateral branch of the left circumflex once his hypothyroidism has been stabilized. An intrinsic balloon pump was placed to augment coronary perfusion and to assist with LV reduction particularly as we correct for his thyroid issues. We have discontinued his Plavix, continue baby aspirin, and discontinued his beta-rick and ARB as now currently on dopamine therapy for hypotension and bradycardia as we correct his hypothyroidism. Would recommend continuing dopamine therapy and weaning it down to maintain an MIP of greater than 60, and heart rate greater than 60 as well. I have been in contact with the [facility] in [facility] to arrange for urgent transfer. Unfortunately I do not believe we have the luxury of time to wait until his thyroid issues have completely resolved prior to requiring bypass surgery given his balloon pump status. I relayed this to [facility] fellow who I spoke with on the phone. In addition the patient has a history of right-sided [place] diaphragmatic paralysis from a previous pneumonia per the family, further complicating his cardiopulmonary status. I recommended that the patient have a endocrine consultation to assist with correcting his thyroid and possibly other glandular issues as well. We will leave any additional endocrine workup to endocrine consultation. His thyroid issues will need to be at least marginally corrected prior to bypass surgery. Although the patient has an elevated right-sided hemidiaphragm due to apparent right-sided paresis due to previous pneumonia, it appears his left diaphragm is working fine. This may make extubation more problematic than usual, but hopefully this will not be an issue going forward. In addition we will continue 0.9 normal saline at 200 cc/h for hypernatremia correction. This may be related to his hypothyroidism as well. Would recommend continuing the balloon pump at 1: 1, and IV heparin drip to maintain a PTT between 50-70. 2. Hyperlipidemia: Patient has had a history of elevated LFTs with previous statin therapy, but appears to be tolerating Pravachol well. His LDL should be less than 70. His LDL currently is 141. Continue Pravachol for now. Would make adjustments to his statins once his thyroid has been corrected. 3. Discussed results of catheterization with the patient and his family, as well as Dr. Arevalo. Discussed with Dr. Purcell. Patient may be transferred to [facility] once a bed becomes available. Code Visit Inpatient E&M: 72532 Subs Hosp L2
[2017-11-14] MEDS: 0.9% NaCl Peripheral Flush Adult/Peds IV (11:25)
[2017-11-14] MEDS: Ondansetron 4 MG/2 ML Vial IV (11:25)
--- NOTE | 2017-11-14 12:13 | PCM.TXEXTCAR ---
- Diet 11/13/17 14:03 Diet: Cardiac/Low Cholesterol Is pt able to select menu?: Yes - Routine Orders/Code Status Enema Type: Fleetz Enema Frequency: Daily PRN Suppository Type: Dulcolax 10mg Suppository Frequency: Daily PRN O2 Frequency: PRN Keep PO Greater than or Equal to (%): 92 - Wound(s) rt groin Wound Type: Puncture - Therapies Weight Bearing: Weight bearing as tolerated Physical Therapy: Eval and Treat Occupational Therapy: Eval and Treat - Allergies/Procedures Done in Hospital Allergies/Adverse Reactions: Allergies No Known Allergies Allergy (Verified 05/08/13 00:18) Procedures: 2-D Echocardiogram, Cardiac catheterization - Type of Care/Length of Stay Estimated LOS: Convalescent Care Less Than 30 days Type of Care Needed: Skilled Rehab Potential: Fair Prognosis: Fair - Additional Orders/Day of Discharge H&P will serve as current which was dated: 11/12/17 Day of Discharge: 11/14/17 - Follow Up Care Primary Care Physician: Cornel Abreu MD [Primary Care Provider] - Please follow up with your Primary Care Physician in: one week Please Follow Up With: Da Leija MD When: 2 weeks
--- NOTE | 2017-11-14 12:16 | PCM.DC.SUM ---
Discharge Date and Diagnosis - Problem List Patient Problems: Active and Suspected Problems Atypical chest pain (Acute) Non-STEMI (non-ST elevated myocardial infarction) (Acute) Coronary artery disease (Acute) LV dysfunction (Acute) Date of Admission: 11/12/17 Date of Discharge: 11/14/17 - Primary Discharge Diagnosis Active and Suspected Problems Atypical chest pain (Acute) Non-STEMI (non-ST elevated myocardial infarction) (Acute) Coronary artery disease (Acute) LV dysfunction (Acute) - Secondary Discharge Diagnosis Chronic Problems Dyslipidemia (Chronic) Hypertension (Chronic) Right hemidiaphragm palsy (Chronic) Hospital Course and Treatment Imaging Results: Diagnostic Data Chest X-Ray 11/14/17 05:55 IMPRESSION: The tip of aortic balloon catheter is at the junction of the aortic arch and descending thoracic aorta. There has been no change since prior examination. Electronically Signed: Paras Crisostomo MD at 8:53 EDT Tel [phone], Service support , Laboratory Results - last 24 hr 11/13/17 11/13/17 11/13/17 11:12 13:40 15:42 WBC RBC Hgb Hct MCV MCH MCHC RDW RDW Differential Plt Count MPV Immature Gran % (Auto) Neut % (Auto) Lymph % (Auto) [place] % (Auto) Eos % (Auto) Baso % (Auto) Absolute Neuts (auto) Absolute Lymphs (auto) Total Counted APTT Activated Clotting Time 142 H Sodium Potassium Chloride Carbon Dioxide Anion Gap BUN Creatinine Estim Creat Clear Calc Est GFR (MDRD) Af Amer Est GFR (MDRD) Non-Af BUN/Creatinine Ratio Glucose Calcium Cortisol 18.70 MRSA (PCR) Negative 11/13/17 11/14/17 11/14/17 20:50 02:55 02:55 WBC 11.3 H RBC 3.95 L Hgb 12.6 L Hct 38.0 L MCV 96.2 H MCH 31.9 MCHC 33.2 RDW 13.2 RDW Differential 47.0 H Plt Count 186 MPV 9.3 Immature Gran % (Auto) 0.100 Neut % (Auto) 83.8 H Lymph % (Auto) 6.0 L [place] % (Auto) 8.8 Eos % (Auto) 1.2 Baso % (Auto) 0.1 Absolute Neuts (auto) 9.5 H Absolute Lymphs (auto) 0.68 L Total Counted Not Reportable APTT 70.9 H Activated Clotting Time Sodium 130 L Potassium 4.1 Chloride 90 L Carbon Dioxide 30.0 Anion Gap 10 BUN 20 H Creatinine 1.25 Estim Creat Clear Calc 60.02 Est GFR (MDRD) Af Amer 74 Est GFR (MDRD) Non-Af 61 BUN/Creatinine Ratio 16.0 Glucose 131 H Calcium 8.5 Cortisol MRSA (PCR) 11/14/17 11/14/17 02:55 08:40 WBC RBC Hgb Hct MCV MCH MCHC RDW RDW Differential Plt Count MPV Immature Gran % (Auto) Neut % (Auto) Lymph % (Auto) [place] % (Auto) Eos % (Auto) Baso % (Auto) Absolute Neuts (auto) Absolute Lymphs (auto) Total Counted APTT 68.3 H 60.0 H Activated Clotting Time Sodium Potassium Chloride Carbon Dioxide Anion Gap BUN Creatinine Estim Creat Clear Calc Est GFR (MDRD) Af Amer Est GFR (MDRD) Non-Af BUN/Creatinine Ratio Glucose Calcium Cortisol MRSA (PCR) Procedures: 2-D Echocardiogram, Cardiac catheterization Summary of Care Provided: The patient is a 67 year old M with a history of hyperlipidemia. He was admitted via the ED on 11/12/2017 with a complaint of sudden onset of chest pain which started around 6 PM on day of presentation. Chest pain was heavy retrosternal and radiated to the back. He had assisted dizziness and lightheadedness. He also complained of chronic shortness of breath due to right hemidiaphragm policy but shortness of breath worsened with chest pain. Blood pressure with grade 3 with 60 days ago at 30 the ED and heart rate was 77 minutes in the ED chest x-ray showed no acute cardiopulmonary process. EKG shows normal sinus rhythm of 76 bpm but no acute ST changes. He was admitted and managed for chest pain. Troponin was negative but trended up to 0.937 then 3.480. Was therefore diagnosed with NST ALAN and started on Plavix 300 mg loading dose and heparin drip as well as aspirin, beta-vaughn, lisinopril, statin and nitroglycerin. Cardiac cath showed significant multivessel coronary artery disease with occlusion of his LAD, subtotal occlusion of his mid left circumflex and 2 critical lesions in his OM. He had fairly significant right to left collaterals and was recommended to have bypass surgery. He had an intra-aortic balloon pump put in after cath. During admission, TSH check was 127 and indicating profound hypothyroidism. Free T4 was low at 0.16. Serum cortisol was 18.7. Patient was very lethargic and weak and this was thought to be due to severe hypothyroidism with possibility of impending myxedema. Patient was given IV levothyroxine 100mcg and started on PO synthroid 125mcg daily. After cardiac cath he was sent up to the ICU for closer monitoring. In the ICU, he separately became hypotensive and was started on dopamine drip. Decision was made to transfer patient to [facility] as he needed open heart surgery for CABG and would also benefit from endocrinology consult, both of which were not available in [facility]. Patient seen and examined prior to discharge. He was very lethargic still had no complaints. He denied any fever or chills, any cough or chest pain, shortness of breath, any belly pain, any diarrhea vomiting. Review of systems is otherwise negative. Labs and vitals reviewed. Home medications reviewed and reconciled. On examination Vitals: Vital Signs Height 5 ft 10 in Weight: 238 lb 12.17 oz Weight in Pounds 238.8 lbs Pulse Ox 100 Temperature 97.6 F Pulse Rate 81 Respiratory Rate 20 Blood Pressure [2nd BP] 141/68 Blood Pressure [Unassisted] 156/85 Blood Pressure [IAB Assisted] 137/82 Blood Pressure 149/76 Blood Pressure Position [2nd Semi-Fowlers BP] Blood Pressure Position Semi-Fowlers []General: Alert, Oriented x3, Cooperative, No apparent distress HEENT: Atraumatic, PERRLA, EOMI, Normocephalic Oral: Moist Mucosa Neck: Supple, No JVD, Negative Carotid Bruits Lungs: Clear to auscultation, Normal air movement, No rhonchi, No wheeze, No rales Cardiovascular: Regular rate, Regular Rhythm, Normal S1, Normal S2, No murmurs Abdomen: Bowel Sounds Present, Soft, Non Tender, Non-Distended, No Hepato-splenomegaly, Obese Extremities: No clubbing, No cyanosis, No edema, Capillary Refill Less than 3 Seconds Skin: No rashes, No breakdown Musculoskeletal: No Tenderness to Palpation of Joints or Extremities Lymphatic: No Cervical, Supraclavicular, or Inguinal Adenopathy Neurological: Cranial nerves II-XII grossly intact, Motor Exam 5/5 strength throughout Psych/Mental Status: Normal Affect,lethargic, Alert and oriented to time, place, person, mood and affect Plan as stated above. Bed obtained for patient at [facility]. He was successfully transferred to [facility]. Discharge Diet: 2000 mg Sodium Diet Discharge Activity: Return to Normal Activity Weight Bearing Status: Weight bearing as tolerated Call your doctor if you observe: Shortness of breath, Dizziness, Chest pain Home Medications: Medications to take at Discharge Albuterol Inhaler [Ventolin Hfa] 1 puff INHALATION Q4H PRN PRN 08/07/15 Cholecalciferol (VIT D3) [Vitamin D3] 1,000 unit PO DAILY 08/07/15 Ginkgo Biloba 40 mg PO DAILY 08/07/15 Glucosam/Chondroit/C/Manganese [Cosamin Ds Capsule] 1 each PO DAILY 08/07/15 Multivitamin [Daily Multiple Vitamin] 1 each PO DAILY 08/07/15 Salpameto 1 tab PO DAILY 08/07/15 Tumeric 1 capsule PO DAILY 11/12/17 Levothyroxine [Synthroid] 150 mcg PO DAILY #30 tab 11/14/17 Following Prescrptions Were Given to Patient: Levothyroxine [Synthroid] 150 mcg PO DAILY #30 tab Primary Care Physician: Cornel Abreu MD [Primary Care Provider] - Please follow up with your Primary Care Physician in: one week Please Follow Up With: Da Leija MD When: 2 weeks Disposition: [facility] Minutes spent on discharge:: 45 Patient Condition:: Stable Medical Necessity - Tobacco Use Smoking Status: Former smoker Meaningful Use Info Meaningful Use Diagnoses (Choose all that apply): AMI - AMI Aspirin given w/in 24hrs of arrival?: Yes ASA at discharge?: Yes Statins at discharge?: Yes Ankit/ARB at discharge?: Yes Beta Vaughn at discharge?: Yes Done w/ Acute SD measure.: Yes Code Visit Inpatient E&M: 95180 Disch Hosp
--- NOTE | 2017-11-14 12:56 | NURSING ---
[facility] transport here for patient. report given to Elder at [facility]
== END 2017-11-14 13:20 | disposition short-term general hospital (02) | DRG 271 ==
LOC: ED 19:38 → PCU 20:36 → ICU 11-13 11:42
PROVIDERS: Internal Medicine Cardiovascular Disease; Admitting Provider Internal Medicine; Emergency Provider Emergency Medicine; Family Provider Family Medicine; PCP Family Medicine; Visit Provider Student in an Organized Health Care Education/Training Program
DX: I21.4 Non-ST elevation (NSTEMI) myocardial infarction (principal); E87.1 Hypo-osmolality and hyponatremia; M19.90 Unspecified osteoarthritis, unspecified site; J98.6 Disorders of diaphragm; E03.9 Hypothyroidism, unspecified; E78.5 Hyperlipidemia, unspecified; I25.110 Atherosclerotic heart disease of native coronary artery with unstable angina pectoris; I10 Essential (primary) hypertension; Z87.891 Personal history of nicotine dependence; E55.9 Vitamin D deficiency, unspecified; Z87.01 Personal history of pneumonia (recurrent)
CPT/HCPCS: 33967; 36415; 71045; 80048; 80061; 80076; 81002; 82533; 82550; 83036; 83690; 83880; 84439; 84443; 84484; 85025; 85027; 85347; 85610; 85730; 87641; 93005; 93306; 93458; 93567; 99284; J7030; J7040; Q9957; A4216; C1769; C1894; C8929; J2405; Q9967

== ENCOUNTER 2017-11-26 12:35 | Inpatient (IN) | payer MEDICARE, SELFPAY ==
[2017-11-26 12:51] VITALS: BP 136/77; PULSE 73; RESP 20; TEMP 36.4; O2SAT 95; BMI 31.3
--- NOTE | 2017-11-26 12:52 | NURSING ---
Patient arrived from [facility] via cot, admitted to room 4. Oriented to room and call light explained.
--- NOTE | 2017-11-26 14:38 | PCM.HP.STD ---
Problem List (1) Chest pain Status: Acute (2) Hyperlipidemia Status: Chronic (3) COPD (chronic obstructive pulmonary disease) Status: Chronic (4) Hypothyroidism Status: Chronic (5) Hypertension Status: Chronic (6) Right hemidiaphragm palsy Status: Chronic (7) Non-STEMI (non-ST elevated myocardial infarction) Status: Acute (8) Coronary artery disease Status: Chronic History of Present Illness Date of Admission: 11/26/17 Chief Complaint: Here for rehabilitation, strengthening, prior to discharge home. The patient is a 67 year old Male with below past medical history admitted to [facility] 11/12/2017 with chest pain. Troponin peaked at 3.480, diagnosed with NSTEMI. Plavix, Heparin, Aspirin, beta rick, Lisinopril added. Left heart catheterization showed multi-vessel coronary artery disease. Intra-aortic balloon pump deployed after heart catheterization. IV, PO Levothyroxine given for severe hypothyroidism. Hypotension treated with Dopamine drip. 11/14/2017 Transferred to [facility] for cardiac revascularization. 11/16/2017 CABG x 4 performed. Levothyroxine 175MCG PO daily for hypothyroidism. IV Lasix given for fluid overload. 11/26/2017 Admit to TCU for rehabilitation, strengthening, prior to discharge home with significant other. Past Medical History Past Medical History (Chronic Problems): Chronic Problems Dyslipidemia (Chronic) Hypertension (Chronic) Right hemidiaphragm palsy (Chronic) Coronary artery disease (Chronic) Hyperlipidemia (Chronic) COPD (chronic obstructive pulmonary disease) (Chronic) Hypothyroidism (Chronic) Allergies No Known Allergies Allergy (Verified 05/08/13 00:18) Home Medications: Ambulatory Orders Medication Instructions Recorded Albuterol Inhaler [Ventolin Hfa] 1 puff INHALATION Q4H PRN PRN 08/07/15 Multivitamin [Daily Multiple 1 each PO DAILY 08/07/15 Vitamin] Acetaminophen 325 mg PO Q4H PRN PRN 11/26/17 Aspirin [Aspirin, Baby] 81 mg PO DAILY@0800 11/26/17 Atorvastatin Calcium [Lipitor] 40 mg PO QHS 11/26/17 Clopidogrel Bisulfate [Clopidogrel] 75 mg PO DAILY 11/26/17 Heparin Injection 5,000 units SC BID 11/26/17 Levothyroxine Sodium [Levoxyl] 175 mcg PO DAILY 11/26/17 Magnesium Hydroxide [Milk of 30 ml PO BID PRN PRN 11/26/17 Magnesia] Metoprolol Tartrate 25 mg PO BID 11/26/17 Multivitamin [Daily Multiple 1 each PO DAILY 11/26/17 Vitamin] Ondansetron [Zofran Odt] 4 mg PO Q6H PRN PRN 11/26/17 Oxycodone [Oxyir] 5 mg PO Q6H PRN PRN 11/26/17 Pantoprazole Sodium [Protonix] 20 mg PO DAILY 11/26/17 Polyethylene Glycol 3350 [Miralax] 17 gm PO BID 11/26/17 Sennosides/Docusate Sodium 1 each PO BID 11/26/17 [Senna-Docusate Sodium Tablet] Surgical History: coronary bypass surgery - X 4 11/16/3017 [facility]. Psychiatric History: No pertinent psych hx Lives: Spouse/ Significant Other Smoking Status: Former smoker Tobacco Use: Non-smoker Alcohol: None Drugs: None - *Family History Paternal History Items: Heart Disease Maternal History Items: Heart Disease Review of Systems Constitutional: Denies: Chills, Fever, Weight Change HEENT: Denies: Head Aches, Sinus Congestion, Sinus Drainage Cardiovascular: Denies: Chest Pain, Palpitations Respiratory: Denies: Cough, Shortness of breath at rest, Sputum production Gastrointestinal: Denies: Abdominal Pain, Nausea, Vomiting Genitourinary: Denies: Dysuria Musculoskeletal: Denies: Joint Pain, Joint Tenderness Skin: Denies: Rash, Wounds Neurological: Denies: Numbness, Tingling, Focal weakness Psychiatric: Denies: Anxiety, Depression, Homicidal Ideations, Suicidal Ideations Hematologic/ Lymphatic: Denies: Easy Bruising, Easy Bleeding VTE Information - Inpt Only VTE Present on Admission: No VTE Mechan Device Prophylaxis: Knee High JOLEEN Hose VTE Pharm Prophylaxis ordered?: Yes Patient Problems: Active and Suspected Problems Chest pain (Acute) - Physical Exam General: Alert, Oriented x3, Cooperative HEENT: Atraumatic, PERRLA, EOMI, Normocephalic Neck: Supple, No JVD, Negative Carotid Bruits Lungs: Clear to auscultation, Normal air movement Cardiovascular: Regular rate, No murmurs Abdomen: Bowel Sounds Present, Soft, Non Tender Extremities: No edema, Capillary Refill Less than 3 Seconds Skin: No rashes, No breakdown, Incision - Sternum clean, dry, intact. Musculoskeletal: No Tenderness to Palpation of Joints or Extremities Neurological: Cranial nerves II-XII grossly intact Psych/Mental Status: Normal Affect, Appropriate Vital Signs Temp Pulse Resp BP Pulse Ox 97.5 F L 73 20 H 136/77 H 95 11/26/17 12:51 11/26/17 12:51 11/26/17 12:51 11/26/17 12:51 11/26/17 12:51 Oxygen Flow Rate (L/min) 1 Oxygen Delivery Method Nasal Cannula Weight: 99.025 kg Body Mass Index (BMI) 31.3 Assessment/Plan All Active Problems Atypical chest pain (Acute) Non-STEMI (non-ST elevated myocardial infarction) (Acute) LV dysfunction (Acute) Chest pain (Acute) 67 year old male with below past medical history hospitalized for chest pain, NSTEMI, underwent CABG x 4 11/16/3017 at [facility], admitted to TCU with debility, here for rehabilitation, strengthening, prior to discharge home with significant other. Debility - PT/OT. Pain - Tylenol 1000MG Q8H PRN mild pain, Oxycodone 5MG Q6H PRN moderate pain. Bowel - Miralax 17GM BID, Senna/colace 2 tablets BID, Dulcolax 10MG PO daily PRN. Pneumonia vaccination - Administer Prevnar 13 and/or Pneumovax 23 as necessary. DVT prophylaxis - Lovenox 40MG SC daily. COPD - Albuterol MDI 2 puffs Q4H PRN. Coronary Artery Disease s/p NSTEMI, s/p CABG x 4 - Metoprolol 25MG BID, Plavix 75MG daily, Aspirin 81MG daily. Hyperlipidemia - Atorvastatin 40MG QHS. Hypothyroidism - Levothyroxine 175MCG daily. Nutrition - MVI daily. Nausea - Zofran 4MG Q6H PRN. GERD - Pantoprazole 20MG daily.
--- NOTE | 2017-11-26 14:44 | HP.PCM_ITS ---
Problem List (1) Chest pain Status: Acute (2) Hyperlipidemia Status: Chronic (3) COPD (chronic obstructive pulmonary disease) Status: Chronic (4) Hypothyroidism Status: Chronic (5) Hypertension Status: Chronic (6) Right hemidiaphragm palsy Status: Chronic (7) Non-STEMI (non-ST elevated myocardial infarction) Status: Acute (8) Coronary artery disease Status: Chronic History of Present Illness Date of Admission: 11/26/17 Chief Complaint: Here for rehabilitation, strengthening, prior to discharge home. The patient is a 67 year old Male with below past medical history admitted to [facility] 11/12/2017 with chest pain. Troponin peaked at 3.480, diagnosed with NSTEMI. Plavix, Heparin, Aspirin, beta rick, Lisinopril added. Left heart catheterization showed multi-vessel coronary artery disease. Intra-aortic balloon pump deployed after heart catheterization. IV, PO Levothyroxine given for severe hypothyroidism. Hypotension treated with Dopamine drip. 11/14/2017 Transferred to [facility] for cardiac revascularization. 11/16/2017 CABG x 4 performed. Levothyroxine 175MCG PO daily for hypothyroidism. IV Lasix given for fluid overload. 11/26/2017 Admit to TCU for rehabilitation, strengthening, prior to discharge home with significant other. Past Medical History Past Medical History (Chronic Problems): Chronic Problems Dyslipidemia (Chronic) Hypertension (Chronic) Right hemidiaphragm palsy (Chronic) Coronary artery disease (Chronic) Hyperlipidemia (Chronic) COPD (chronic obstructive pulmonary disease) (Chronic) Hypothyroidism (Chronic) Allergies No Known Allergies Allergy (Verified 05/08/13 00:18) Home Medications: Ambulatory Orders Medication Instructions Recorded Albuterol Inhaler [Ventolin Hfa] 1 puff INHALATION Q4H PRN PRN 08/07/15 Multivitamin [Daily Multiple 1 each PO DAILY 08/07/15 Vitamin] Acetaminophen 325 mg PO Q4H PRN PRN 11/26/17 Aspirin [Aspirin, Baby] 81 mg PO DAILY@0800 11/26/17 Atorvastatin Calcium [Lipitor] 40 mg PO QHS 11/26/17 Clopidogrel Bisulfate [Clopidogrel] 75 mg PO DAILY 11/26/17 Heparin Injection 5,000 units SC BID 11/26/17 Levothyroxine Sodium [Levoxyl] 175 mcg PO DAILY 11/26/17 Magnesium Hydroxide [Milk of 30 ml PO BID PRN PRN 11/26/17 Magnesia] Metoprolol Tartrate 25 mg PO BID 11/26/17 Multivitamin [Daily Multiple 1 each PO DAILY 11/26/17 Vitamin] Ondansetron [Zofran Odt] 4 mg PO Q6H PRN PRN 11/26/17 Oxycodone [Oxyir] 5 mg PO Q6H PRN PRN 11/26/17 Pantoprazole Sodium [Protonix] 20 mg PO DAILY 11/26/17 Polyethylene Glycol 3350 [Miralax] 17 gm PO BID 11/26/17 Sennosides/Docusate Sodium 1 each PO BID 11/26/17 [Senna-Docusate Sodium Tablet] Surgical History: coronary bypass surgery - X 4 11/16/3017 [facility]. Psychiatric History: No pertinent psych hx Lives: Spouse/ Significant Other Smoking Status: Former smoker Tobacco Use: Non-smoker Alcohol: None Drugs: None - *Family History Paternal History Items: Heart Disease Maternal History Items: Heart Disease Review of Systems Constitutional: Denies: Chills, Fever, Weight Change HEENT: Denies: Head Aches, Sinus Congestion, Sinus Drainage Cardiovascular: Denies: Chest Pain, Palpitations Respiratory: Denies: Cough, Shortness of breath at rest, Sputum production Gastrointestinal: Denies: Abdominal Pain, Nausea, Vomiting Genitourinary: Denies: Dysuria Musculoskeletal: Denies: Joint Pain, Joint Tenderness Skin: Denies: Rash, Wounds Neurological: Denies: Numbness, Tingling, Focal weakness Psychiatric: Denies: Anxiety, Depression, Homicidal Ideations, Suicidal Ideations Hematologic/ Lymphatic: Denies: Easy Bruising, Easy Bleeding VTE Information - Inpt Only VTE Present on Admission: No VTE Mechan Device Prophylaxis: Knee High JOLEEN Hose VTE Pharm Prophylaxis ordered?: Yes Patient Problems: Active and Suspected Problems Chest pain (Acute) - Physical Exam General: Alert, Oriented x3, Cooperative HEENT: Atraumatic, PERRLA, EOMI, Normocephalic Neck: Supple, No JVD, Negative Carotid Bruits Lungs: Clear to auscultation, Normal air movement Cardiovascular: Regular rate, No murmurs Abdomen: Bowel Sounds Present, Soft, Non Tender Extremities: No edema, Capillary Refill Less than 3 Seconds Skin: No rashes, No breakdown, Incision - Sternum clean, dry, intact. Musculoskeletal: No Tenderness to Palpation of Joints or Extremities Neurological: Cranial nerves II-XII grossly intact Psych/Mental Status: Normal Affect, Appropriate Vital Signs Temp Pulse Resp BP Pulse Ox 97.5 F L 73 20 H 136/77 H 95 11/26/17 12:51 11/26/17 12:51 11/26/17 12:51 11/26/17 12:51 11/26/17 12:51 Oxygen Flow Rate (L/min) 1 Oxygen Delivery Method Nasal Cannula Weight: 99.025 kg Body Mass Index (BMI) 31.3 Assessment/Plan All Active Problems Atypical chest pain (Acute) Non-STEMI (non-ST elevated myocardial infarction) (Acute) LV dysfunction (Acute) Chest pain (Acute) 67 year old male with below past medical history hospitalized for chest pain, NSTEMI, underwent CABG x 4 11/16/3017 at [facility], admitted to TCU with debility, here for rehabilitation, strengthening, prior to discharge home with significant other. * Debility - PT/OT. * Pain - Tylenol 1000MG Q8H PRN mild pain, Oxycodone 5MG Q6H PRN moderate pain. * Bowel - Miralax 17GM BID, Senna/colace 2 tablets BID, Dulcolax 10MG PO daily PRN. * Pneumonia vaccination - Administer Prevnar 13 and/or Pneumovax 23 as necessary. * DVT prophylaxis - Lovenox 40MG SC daily. * COPD - Albuterol MDI 2 puffs Q4H PRN. * Coronary Artery Disease s/p NSTEMI, s/p CABG x 4 - Metoprolol 25MG BID, Plavix 75MG daily, Aspirin 81MG daily. * Hyperlipidemia - Atorvastatin 40MG QHS. * Hypothyroidism - Levothyroxine 175MCG daily. * Nutrition - MVI daily. * Nausea - Zofran 4MG Q6H PRN. * GERD - Pantoprazole 20MG daily.
[2017-11-26 18:39] VITALS: BP 114/62; PULSE 82
[2017-11-26] MEDS: Metoprolol Tartrate 25 MG Tablet PO (18:39)
[2017-11-26] MEDS: Senna/Docusate Sodium 1 Tablet 2 TABLET PO (18:43)
[2017-11-26] MEDS: Polyethylene Glycol 3350 17 GM PACKET PO (18:43)
[2017-11-26 19:40] VITALS: O2SAT 93
[2017-11-26] MEDS: oxyCODONE 5 MG Tablet PO (20:31)
[2017-11-26] MEDS: Atorvastatin Calcium 40 MG Tablet PO (20:32)
[2017-11-26] MEDS: Acetaminophen 500 MG Tablet 1000 MG PO (20:32)
--- NOTE | 2017-11-26 20:34 | NURSING ---
Pt voicing frustration over current pain medication orders: PRN tylenol 1000mg q8 and oxyir 5mg q6. States he was taking 'more than that at the clinic' but unable to say if the frequency or the dose was different. Encouraged pt to try the current orders for current burning pain he describes as a 6/10 to chest incision. Stated pain will be evaluated again in 30-45 minutes and we can go from there. Pt reluctantly agreeable to this. Meds given, RN aware, continuing to monitor.
[2017-11-27 06:17] LABS: Anion Gap 7 (5-15); BUN 19 mg/dL (7-18); BUN/Creat Ratio 18.6 RATIO (10-20); Calcium,Total 8.8 mg/dL (8.5-10.1); Chloride 86 mmol/L (98-107); Creatinine, Serum 1.02 mg/dL (0.70-1.30); EST Glomerular Filtration Rate 78 mL/min (>60); Est Glom Filt Rate - Afr Amer 94 mL/min (>60); Estimated Creatinine Clearance 73.56 ml/min; Glucose 92 mg/dL (74-106); Potassium 4.6 mmol/L (3.5-5.1); Sodium Level 130 mmol/L (136-145)
[2017-11-27 06:50] VITALS: O2SAT 93
[2017-11-27] MEDS: oxyCODONE 5 MG Tablet PO (07:09)
[2017-11-27] MEDS: Pantoprazole Sodium 20 MG Tablet PO (07:11)
[2017-11-27 07:12] VITALS: BP 125/72; PULSE 73
[2017-11-27] MEDS: Metoprolol Tartrate 25 MG Tablet PO ×2 (07:12→17:46)
[2017-11-27] MEDS: Clopidogrel Bisulfate 75 MG Tablet PO (07:12)
[2017-11-27] MEDS: Enoxaparin 40 MG/0.4 ML Syringe SC (07:12)
[2017-11-27] MEDS: Levothyroxine 175 MCG Tablet PO (07:13)
[2017-11-27] MEDS: Polyethylene Glycol 3350 17 GM PACKET PO ×2 (07:13→17:47)
[2017-11-27] MEDS: Senna/Docusate Sodium 1 Tablet 2 TABLET PO ×2 (07:13→17:47)
[2017-11-27] MEDS: Multivitamins,Therapeutic Tablet 1 TABLET PO (08:16)
[2017-11-27] MEDS: Aspirin 81 MG TAB.CHEW PO (08:16)
[2017-11-27] MEDS: Tuberculin,Purif.prot.deriv. 50 TU/ML Vial 5 ML ID (11:08)
[2017-11-27 16:00] VITALS: BP 129/71; PULSE 76; RESP 18; TEMP 35.6; O2SAT 90
[2017-11-27 17:46] VITALS: BP 129/71; PULSE 76
[2017-11-27] MEDS: Atorvastatin Calcium 40 MG Tablet PO (21:10)
[2017-11-27 21:20] VITALS: PULSE 80; RESP 18; O2SAT 92
--- NOTE | 2017-11-27 23:34 | NURSING ---
This nurse removed lidocaine patch remove from pt chest area.
[2017-11-28 05:48] VITALS: BP 118/61; PULSE 69
[2017-11-28] MEDS: Pantoprazole Sodium 20 MG Tablet PO (05:48)
[2017-11-28] MEDS: Senna/Docusate Sodium 1 Tablet 2 TABLET PO ×2 (05:48→17:57)
[2017-11-28] MEDS: Metoprolol Tartrate 25 MG Tablet PO ×2 (05:48→17:57)
[2017-11-28] MEDS: Clopidogrel Bisulfate 75 MG Tablet PO (05:49)
[2017-11-28] MEDS: Levothyroxine 175 MCG Tablet PO (05:49)
[2017-11-28] MEDS: Polyethylene Glycol 3350 17 GM PACKET PO ×2 (05:50→17:56)
[2017-11-28] MEDS: Enoxaparin 40 MG/0.4 ML Syringe SC (05:50)
[2017-11-28 07:51] VITALS: O2SAT 93
[2017-11-28] MEDS: Aspirin 81 MG TAB.CHEW PO (08:13)
[2017-11-28] MEDS: Multivitamins,Therapeutic Tablet 1 TABLET PO (08:13)
--- NOTE | 2017-11-28 10:01 | CASEMGMT ---
Insurance Clinical information faxed. Pending continued stay approval at this time. Auth#[id number] Lissa MICHEL, WRAP TURNER
[2017-11-28 14:30] VITALS: PULSE 54; RESP 18; O2SAT 96
[2017-11-28 16:00] VITALS: BP 123/68; PULSE 74; RESP 16; TEMP 36.2; O2SAT 94
[2017-11-28 17:57] VITALS: BP 123/68; PULSE 74
[2017-11-28] MEDS: Atorvastatin Calcium 40 MG Tablet PO (21:16)
[2017-11-29] MEDS: Senna/Docusate Sodium 1 Tablet 2 TABLET PO ×2 (04:33→17:23)
[2017-11-29] MEDS: Clopidogrel Bisulfate 75 MG Tablet PO (04:34)
[2017-11-29] MEDS: Pantoprazole Sodium 20 MG Tablet PO (04:34)
[2017-11-29 04:35] VITALS: BP 128/71; PULSE 75
[2017-11-29] MEDS: Metoprolol Tartrate 25 MG Tablet PO ×2 (04:35→17:23)
[2017-11-29] MEDS: Enoxaparin 40 MG/0.4 ML Syringe SC (04:36)
[2017-11-29] MEDS: Levothyroxine 175 MCG Tablet PO (04:37)
[2017-11-29 05:51] LABS: Absolute Lymphocyte Count 0.62 X10^3/ul (0.83-4.51); Absolute Neutrophil Count 6.5 X10^3/uL (2.0-7.7); Basophil# 0.05 X10^3/uL; Basophil% 0.6 % (0-1); Eosinophil# 0.23 X10^3/uL; Eosinophils% 2.7 % (0-5); Hemoglobin 9.3 g/dl (13.0-16.5); Lymphocyte # 0.62 X10^3/ul (4.0); Lymphocyte % 7.3 % (19-41); Mean Corp Hgb Conc 32.1 g/gl (32-36); Mean Corpuscular Hgb 31.1 pg (27.0-32.0); Mean Platelet Vol. 8.9 fl (6.2-12.0); Monocyte# 1.07 X10^3/uL; Monocyte% 12.6 % (0-10); Neutrophil % 76.2 % (47-70); Platelet Count 372 K/mm3 (150-450); RBC Distribution Width CV 14.3 % (11.6-14.6); RBC Distribution Width SD 47.8 fl (35.1-43.9); Red Blood Count 2.99 M/mm3 (4.6-6.2); White Blood Count 8.5 K/mm3 (4.4-11.0)
[2017-11-29 06:01] LABS: POSITIVE COUNT NO; POSITIVE DIFFERENTIAL NO; POSITIVE MORPHOLOGY NO
[2017-11-29 07:53] VITALS: O2SAT 92
[2017-11-29] MEDS: Aspirin 81 MG TAB.CHEW PO (07:55)
[2017-11-29] MEDS: Multivitamins,Therapeutic Tablet 1 TABLET PO (07:55)
[2017-11-29] MEDS: Polyethylene Glycol 3350 17 GM PACKET PO ×2 (09:10→17:23)
--- NOTE | 2017-11-29 09:28 | CASEMGMT ---
Plan of care meeting held. Resident present as well as resident family. No discharge date set at this time. Resident to continue with further care and treatment on the Transitional Care Unit. Resident with a pending insurance approval at this time and is aware that continued stay approval is not guaranteed. Resident plans to discharge to home with spouse at time of discharge. Resident does live in a 2-story home with a flight of stairs to get to the full bathroom. Resident does have a half bath on the second floor and is able to have chair that resident sleeps in moved to the 1st floor if needed. Support given. Will continue to follow. Lissa MICHEL, SOLUTIONS EXECUTIVE SECURITY
--- NOTE | 2017-11-29 13:09 | CASEMGMT ---
Brief interview for mental status (BIMS) and resident mood interview (PHQ-9) completed on this day. BIMS score 15. PHQ-9 score 04/15
--- NOTE | 2017-11-29 13:13 | NURSING ---
THERAPY STATED TO THIS NURSE THAT PT UP WITH ACTIVITY ON ROOM AIR PT DROPPED DOWN IN THE 80s. OXYGEN APPLIED AT 1L OXYGEN BACK UP IN THE 90S. REPORTED TO MIRIAM WHITE
[2017-11-29 15:40] VITALS: BP 119/69; PULSE 72; RESP 18; TEMP 37; O2SAT 95
[2017-11-29 17:23] VITALS: BP 119/69; PULSE 72
[2017-11-29] MEDS: Atorvastatin Calcium 40 MG Tablet PO (21:56)
[2017-11-29 22:00] VITALS: PULSE 70; RESP 16; O2SAT 94
[2017-11-30] MEDS: oxyCODONE 5 MG Tablet PO (01:28)
[2017-11-30 05:31] VITALS: BP 148/88; PULSE 78
[2017-11-30] MEDS: Polyethylene Glycol 3350 17 GM PACKET PO ×2 (05:31→17:13)
[2017-11-30] MEDS: Enoxaparin 40 MG/0.4 ML Syringe SC (05:31)
[2017-11-30] MEDS: Metoprolol Tartrate 25 MG Tablet PO ×2 (05:31→17:13)
[2017-11-30] MEDS: Pantoprazole Sodium 20 MG Tablet PO (05:32)
[2017-11-30] MEDS: Clopidogrel Bisulfate 75 MG Tablet PO (05:32)
[2017-11-30] MEDS: Levothyroxine 175 MCG Tablet PO (05:32)
[2017-11-30] MEDS: Senna/Docusate Sodium 1 Tablet 2 TABLET PO ×2 (05:32→17:13)
[2017-11-30 06:00] VITALS: PULSE 78; RESP 20; O2SAT 94
[2017-11-30 07:08] VITALS: O2SAT 94
--- NOTE | 2017-11-30 08:12 | CASEMGMT ---
Insurance Continued stay approved with next update due on 12/04/17. Auth#[id number] Lissa MICHEL, BULLET ASSEMBLY PRESS OPERATOR
[2017-11-30] MEDS: Iron Polysaccharide Complex 150 MG CAPSULE PO (08:39)
[2017-11-30] MEDS: Aspirin 81 MG TAB.CHEW PO (08:39)
[2017-11-30] MEDS: Multivitamins,Therapeutic Tablet 1 TABLET PO (08:39)
--- NOTE | 2017-11-30 12:56 | MDS.RN ---
Pain interview for JUSTINO 12/03/17 completed.
[2017-11-30 16:00] VITALS: BP 145/74; PULSE 86; RESP 14; TEMP 36.8; O2SAT 93
[2017-11-30 17:13] VITALS: BP 145/74; PULSE 86
[2017-11-30] MEDS: Atorvastatin Calcium 40 MG Tablet PO (20:01)
[2017-12-01 05:19] VITALS: BP 121/72; PULSE 77; RESP 16; O2SAT 94
[2017-12-01 05:20] VITALS: BP 121/72; PULSE 77
[2017-12-01] MEDS: Metoprolol Tartrate 25 MG Tablet PO ×2 (05:20→17:54)
[2017-12-01] MEDS: Pantoprazole Sodium 20 MG Tablet PO (05:21)
[2017-12-01] MEDS: Clopidogrel Bisulfate 75 MG Tablet PO (05:21)
[2017-12-01] MEDS: Levothyroxine 175 MCG Tablet PO (05:21)
[2017-12-01] MEDS: Enoxaparin 40 MG/0.4 ML Syringe SC (05:22)
[2017-12-01] MEDS: Senna/Docusate Sodium 1 Tablet 2 TABLET PO ×2 (05:22→17:54)
[2017-12-01] MEDS: Polyethylene Glycol 3350 17 GM PACKET PO ×2 (05:24→17:54)
[2017-12-01] MEDS: Multivitamins,Therapeutic Tablet 1 TABLET PO (08:31)
[2017-12-01] MEDS: Iron Polysaccharide Complex 150 MG CAPSULE PO (08:31)
[2017-12-01] MEDS: Aspirin 81 MG TAB.CHEW PO (08:31)
[2017-12-01 10:00] VITALS: PULSE 80; RESP 20; O2SAT 94
--- NOTE | 2017-12-01 11:15 | PCM.PN.RX ---
<Glynn Farley D - Last Filed: 12/01/17 11:15> Progress Note - Pharmacy Subjective: TCU Admission Objective: Allergies No Known Allergies Allergy (Verified 05/08/13 00:18) Current Medications Generic Name Dose Route Start Last Admin Trade Name Freq PRN Reason Stop Dose Admin Acetaminophen 1,000 mg 11/26/17 14:54 11/26/17 20:32 Tylenol PO 1,000 mg Q8H PRN Administration MILD PAIN (1-3/10) Albuterol Sulfate 2 puff 11/26/17 14:54 Ventolin Hfa (Sp) INHALATION Q4H PRN PRN SHORTNESS OF BREATH Aspirin 81 mg 11/27/17 08:00 12/01/17 08:31 Aspirin, Baby PO 81 mg DAILY@0800 [facility] Administration Atorvastatin Calcium 40 mg 11/26/17 22:00 11/30/17 20:01 Lipitor PO 40 mg QHS [facility] Administration Bisacodyl 10 mg 11/26/17 14:53 Dulcolax PO DAILY PRN Constipation Clopidogrel Bisulfate 75 mg 11/27/17 06:00 12/01/17 05:21 Plavix PO 75 mg DAILY [facility] Administration Emollient Ointment 1 applic 11/26/17 22:00 12/01/17 05:24 Eucerin Intensive Repair TOPICAL 1 applicatio BID@0600,2200 [facility] Administration Protocol Enoxaparin Sodium 40 mg 11/27/17 06:00 12/01/17 05:22 Lovenox SC 40 mg DAILY@0600 [facility] Administration Levothyroxine Sodium 175 mcg 11/27/17 06:00 12/01/17 05:21 Synthroid PO 175 mcg DAILY@0600 [facility] Administration Metoprolol Tartrate 25 mg 11/26/17 18:00 12/01/17 05:20 Lopressor (Beta Vaughn) PO 25 mg BID [facility] Administration Multivitamins 1 tablet 11/27/17 08:00 12/01/17 08:31 Multivitamin PO 1 tablet DAILYCM [facility] Administration Ondansetron HCl 4 mg 11/26/17 13:28 Zofran Odt PO Q6H PRN PRN NAUSEA Oxycodone HCl 5 mg 11/26/17 13:28 11/30/17 01:28 Oxyir PO 5 mg Q6H PRN PRN Administration MODERATE PAIN (4-5/10) Pantoprazole Sodium 20 mg 11/27/17 06:00 12/01/17 05:21 Protonix PO 20 mg DAILY [facility] Administration Polyethylene Glycol 17 gm 11/26/17 18:00 12/01/17 05:24 Miralax PO 17 gm BID [facility] Administration Polysaccharide Iron Complex 150 mg 11/30/17 08:00 12/01/17 08:31 Ferrex 150 PO 150 mg DAILYCM [facility] Administration Senna/Docusate Sodium 2 tablet 11/26/17 18:00 12/01/17 05:22 Senokot-S, Cindy-Colace PO 2 tablet BID [facility] Administration Tuberculin PPD 5 tu 12/04/17 10:00 Tubersol, Aplisol, Ppd ID 12/04/17 10:01 X1 ONE Problem List Chest pain (Acute) Hyperlipidemia (Chronic) COPD (chronic obstructive pulmonary disease) (Chronic) Hypothyroidism (Chronic) Vital Signs Temp Pulse Resp BP Pulse Ox 98.3 F 77 16 121/72 H 94 11/30/17 16:00 12/01/17 05:20 12/01/17 05:19 12/01/17 05:20 12/01/17 05:19 Oxygen Flow Rate (L/min) 1 Oxygen Delivery Method Room Air Weight: 99.79 kg Body Mass Index (BMI) 31.3 Sodium 130 mmol/L (136-145) L 11/27/17 05:20 Potassium 4.6 mmol/L (3.5-5.1) 11/27/17 05:20 Chloride 86 mmol/L (98-107) L 11/27/17 05:20 Carbon Dioxide 37.0 mmol/L (21.0-32.0) H 11/27/17 05:20 Anion Gap 7 (5-15) 11/27/17 05:20 BUN 19 mg/dL (7-18) H 11/27/17 05:20 Creatinine 1.02 mg/dL (0.70-1.30) 11/27/17 05:20 Est GFR (MDRD) Af Amer 94 mL/min (>60) 11/27/17 05:20 Est GFR (MDRD) Non-Af 78 mL/min (>60) 11/27/17 05:20 BUN/Creatinine Ratio 18.6 RATIO (10-20) 11/27/17 05:20 Glucose 92 mg/dL (74-106) 11/27/17 05:20 Assessment/Plan: 1) Pain APAP for mild pain, oxycodone for moderate pain. Continue to monitor prn medication use, daily pain scores. 2) CAD ASA, atorvastatin, clopidogrel, metoprolol. Continue to monitor BP/HR, lipids, for chest pain. 3) Pulm Albuterol prn. Continue to monitor prn medication use, for shortness of breath. 4) GI Pantoprazole daily, prn ondansetron. Continue to monitor prn medication use, for s/s GI distress. 5) DVT PPx Enoxaparin daily. Continue to monitor s/s bleeding/clot. 6) Nutrition Fe, multivitamin. Continue to monitor clinically. 7) Hypothyroidism Levothyroxine daily. Continue to monitor s/s hyper/hypothyroidism. Psychotropic Medications: None Unnecessary Medications: None Bowel Regimen: 8) Senna/s, PEG, prn bisacodyl. Continue to monitor prn medication use, for constipation/diarrhea. Date of Note:: 12/01/17 - Provider Comments Provider responsibility: Provider responsible to enter orders to implement recommendations <Dawson Fernandez Chi - Last Filed: 12/01/17 14:38> Progress Note - Pharmacy Subjective: [] Objective: Allergies No Known Allergies Allergy (Verified 05/08/13 00:18) Current Medications Generic Name Dose Route Start Last Admin Trade Name Freq PRN Reason Stop Dose Admin Acetaminophen 1,000 mg 11/26/17 14:54 11/26/17 20:32 Tylenol PO 1,000 mg Q8H PRN Administration MILD PAIN (1-3/10) Albuterol Sulfate 2 puff 11/26/17 14:54 Ventolin Hfa (Sp) INHALATION Q4H PRN PRN SHORTNESS OF BREATH Aspirin 81 mg 11/27/17 08:00 12/01/17 08:31 Aspirin, Baby PO 81 mg DAILY@0800 [facility] Administration Atorvastatin Calcium 40 mg 11/26/17 22:00 11/30/17 20:01 Lipitor PO 40 mg QHS [facility] Administration Bisacodyl 10 mg 11/26/17 14:53 Dulcolax PO DAILY PRN Constipation Clopidogrel Bisulfate 75 mg 11/27/17 06:00 12/01/17 05:21 Plavix PO 75 mg DAILY [facility] Administration Emollient Ointment 1 applic 11/26/17 22:00 12/01/17 05:24 Eucerin Intensive Repair TOPICAL 1 applicatio BID@0600,2200 [facility] Administration Protocol Enoxaparin Sodium 40 mg 11/27/17 06:00 12/01/17 05:22 Lovenox SC 40 mg DAILY@0600 [facility] Administration Levothyroxine Sodium 175 mcg 11/27/17 06:00 12/01/17 05:21 Synthroid PO 175 mcg DAILY@0600 [facility] Administration Metoprolol Tartrate 25 mg 11/26/17 18:00 12/01/17 05:20 Lopressor (Beta Vaughn) PO 25 mg BID [facility] Administration Multivitamins 1 tablet 11/27/17 08:00 12/01/17 08:31 Multivitamin PO 1 tablet DAILYCM [facility] Administration Ondansetron HCl 4 mg 11/26/17 13:28 Zofran Odt PO Q6H PRN PRN NAUSEA Oxycodone HCl 5 mg 11/26/17 13:28 11/30/17 01:28 Oxyir PO 5 mg Q6H PRN PRN Administration MODERATE PAIN (4-5/10) Pantoprazole Sodium 20 mg 11/27/17 06:00 12/01/17 05:21 Protonix PO 20 mg DAILY [facility] Administration Polyethylene Glycol 17 gm 11/26/17 18:00 12/01/17 05:24 Miralax PO 17 gm BID [facility] Administration Polysaccharide Iron Complex 150 mg 11/30/17 08:00 12/01/17 08:31 Ferrex 150 PO 150 mg DAILYCM [facility] Administration Senna/Docusate Sodium 2 tablet 11/26/17 18:00 12/01/17 05:22 Senokot-S, Cindy-Colace PO 2 tablet BID [facility] Administration Tuberculin PPD 5 tu 12/04/17 10:00 Tubersol, Aplisol, Ppd ID 12/04/17 10:01 X1 ONE Problem List Chest pain (Acute) Hyperlipidemia (Chronic) COPD (chronic obstructive pulmonary disease) (Chronic) Hypothyroidism (Chronic) Vital Signs Temp Pulse Resp BP Pulse Ox 98.3 F 77 16 121/72 H 94 11/30/17 16:00 12/01/17 05:20 12/01/17 05:19 12/01/17 05:20 12/01/17 05:19 Oxygen Flow Rate (L/min) 1 Oxygen Delivery Method Room Air Weight: 99.79 kg Body Mass Index (BMI) 31.3 Sodium 130 mmol/L (136-145) L 11/27/17 05:20 Potassium 4.6 mmol/L (3.5-5.1) 11/27/17 05:20 Chloride 86 mmol/L (98-107) L 11/27/17 05:20 Carbon Dioxide 37.0 mmol/L (21.0-32.0) H 11/27/17 05:20 Anion Gap 7 (5-15) 11/27/17 05:20 BUN 19 mg/dL (7-18) H 11/27/17 05:20 Creatinine 1.02 mg/dL (0.70-1.30) 11/27/17 05:20 Est GFR (MDRD) Af Amer 94 mL/min (>60) 11/27/17 05:20 Est GFR (MDRD) Non-Af 78 mL/min (>60) 11/27/17 05:20 BUN/Creatinine Ratio 18.6 RATIO (10-20) 11/27/17 05:20 Glucose 92 mg/dL (74-106) 11/27/17 05:20 Assessment/Plan: Psychotropic Medications: Unnecessary Medications: Bowel Regimen: - Provider Comments Provider responsibility: Provider responsible to enter orders to implement recommendations Provider Comments to Recommendations by Pharmacy: Agree
--- NOTE | 2017-12-01 11:20 | PHA.CONS_ITS ---
<Glynn Farley D - Last Filed: 12/01/17 11:15> Progress Note - Pharmacy Subjective: TCU Admission Objective: Allergies No Known Allergies Allergy (Verified 05/08/13 00:18) Current Medications Generic Name Dose Route Start Last Admin Trade Name Freq PRN Reason Stop Dose Admin Acetaminophen 1,000 mg 11/26/17 14:54 11/26/17 20:32 Tylenol PO 1,000 mg Q8H PRN Administration MILD PAIN (1-3/10) Albuterol Sulfate 2 puff 11/26/17 14:54 Ventolin Hfa (Sp) INHALATION Q4H PRN PRN SHORTNESS OF BREATH Aspirin 81 mg 11/27/17 08:00 12/01/17 08:31 Aspirin, Baby PO 81 mg DAILY@0800 [facility] Administration Atorvastatin Calcium 40 mg 11/26/17 22:00 11/30/17 20:01 Lipitor PO 40 mg QHS ADAIR Administration Bisacodyl 10 mg 11/26/17 14:53 Dulcolax PO DAILY PRN Constipation Clopidogrel Bisulfate 75 mg 11/27/17 06:00 12/01/17 05:21 Plavix PO 75 mg DAILY [facility] Administration Emollient Ointment 1 applic 11/26/17 22:00 12/01/17 05:24 Eucerin Intensive Repair TOPICAL 1 applicatio BID@0600,2200 [facility] Administration Protocol Enoxaparin Sodium 40 mg 11/27/17 06:00 12/01/17 05:22 Lovenox SC 40 mg DAILY@0600 [facility] Administration Levothyroxine Sodium 175 mcg 11/27/17 06:00 12/01/17 05:21 Synthroid PO 175 mcg DAILY@0600 [facility] Administration Metoprolol Tartrate 25 mg 11/26/17 18:00 12/01/17 05:20 Lopressor (Beta Vaughn) PO 25 mg BID [facility] Administration Multivitamins 1 tablet 11/27/17 08:00 12/01/17 08:31 Multivitamin PO 1 tablet DAILYCM [facility] Administration Ondansetron HCl 4 mg 11/26/17 13:28 Zofran Odt PO Q6H PRN PRN NAUSEA Oxycodone HCl 5 mg 11/26/17 13:28 11/30/17 01:28 Oxyir PO 5 mg Q6H PRN PRN Administration MODERATE PAIN (4-5/10) Pantoprazole Sodium 20 mg 11/27/17 06:00 12/01/17 05:21 Protonix PO 20 mg DAILY [facility] Administration Polyethylene Glycol 17 gm 11/26/17 18:00 12/01/17 05:24 Miralax PO 17 gm BID [facility] Administration Polysaccharide Iron Complex 150 mg 11/30/17 08:00 12/01/17 08:31 Ferrex 150 PO 150 mg DAILYCM [facility] Administration Senna/Docusate Sodium 2 tablet 11/26/17 18:00 12/01/17 05:22 Senokot-S, Cindy-Colace PO 2 tablet BID [facility] Administration Tuberculin PPD 5 tu 12/04/17 10:00 Tubersol, Aplisol, Ppd ID 12/04/17 10:01 X1 ONE Problem List Chest pain (Acute) Hyperlipidemia (Chronic) COPD (chronic obstructive pulmonary disease) (Chronic) Hypothyroidism (Chronic) Vital Signs Temp Pulse Resp BP Pulse Ox 98.3 F 77 16 121/72 H 94 11/30/17 16:00 12/01/17 05:20 12/01/17 05:19 12/01/17 05:20 12/01/17 05:19 Oxygen Flow Rate (L/min) 1 Oxygen Delivery Method Room Air Weight: 99.79 kg Body Mass Index (BMI) 31.3 Sodium 130 mmol/L (136-145) L 11/27/17 05:20 Potassium 4.6 mmol/L (3.5-5.1) 11/27/17 05:20 Chloride 86 mmol/L (98-107) L 11/27/17 05:20 Carbon Dioxide 37.0 mmol/L (21.0-32.0) H 11/27/17 05:20 Anion Gap 7 (5-15) 11/27/17 05:20 BUN 19 mg/dL (7-18) H 11/27/17 05:20 Creatinine 1.02 mg/dL (0.70-1.30) 11/27/17 05:20 Est GFR (MDRD) Af Amer 94 mL/min (>60) 11/27/17 05:20 Est GFR (MDRD) Non-Af 78 mL/min (>60) 11/27/17 05:20 BUN/Creatinine Ratio 18.6 RATIO (10-20) 11/27/17 05:20 Glucose 92 mg/dL (74-106) 11/27/17 05:20 Assessment/Plan: 1) Pain APAP for mild pain, oxycodone for moderate pain. Continue to monitor prn medication use, daily pain scores. 2) CAD ASA, atorvastatin, clopidogrel, metoprolol. Continue to monitor BP/HR, lipids , for chest pain. 3) Pulm Albuterol prn. Continue to monitor prn medication use, for shortness of breath. 4) GI Pantoprazole daily, prn ondansetron. Continue to monitor prn medication use, for s/s GI distress. 5) DVT PPx Enoxaparin daily. Continue to monitor s/s bleeding/clot. 6) Nutrition Fe, multivitamin. Continue to monitor clinically. 7) Hypothyroidism Levothyroxine daily. Continue to monitor s/s hyper/hypothyroidism. Psychotropic Medications: None Unnecessary Medications: None Bowel Regimen: 8) Senna/s, PEG, prn bisacodyl. Continue to monitor prn medication use, for constipation/diarrhea. Date of Note:: 12/01/17 - Provider Comments Provider responsibility: Provider responsible to enter orders to implement recommendations <Dawson Fernandez Chi - Last Filed: 12/01/17 14:38> Progress Note - Pharmacy Subjective: [] Objective: Allergies No Known Allergies Allergy (Verified 05/08/13 00:18) Current Medications Generic Name Dose Route Start Last Admin Trade Name Freq PRN Reason Stop Dose Admin Acetaminophen 1,000 mg 11/26/17 14:54 11/26/17 20:32 Tylenol PO 1,000 mg Q8H PRN Administration MILD PAIN (1-3/10) Albuterol Sulfate 2 puff 11/26/17 14:54 Ventolin Hfa (Sp) INHALATION Q4H PRN PRN SHORTNESS OF BREATH Aspirin 81 mg 11/27/17 08:00 12/01/17 08:31 Aspirin, Baby PO 81 mg DAILY@0800 [facility] Administration Atorvastatin Calcium 40 mg 11/26/17 22:00 11/30/17 20:01 Lipitor PO 40 mg QHS ADAIR Administration Bisacodyl 10 mg 11/26/17 14:53 Dulcolax PO DAILY PRN Constipation Clopidogrel Bisulfate 75 mg 11/27/17 06:00 12/01/17 05:21 Plavix PO 75 mg DAILY [facility] Administration Emollient Ointment 1 applic 11/26/17 22:00 12/01/17 05:24 Eucerin Intensive Repair TOPICAL 1 applicatio BID@0600,2200 [facility] Administration Protocol Enoxaparin Sodium 40 mg 11/27/17 06:00 12/01/17 05:22 Lovenox SC 40 mg DAILY@0600 [facility] Administration Levothyroxine Sodium 175 mcg 11/27/17 06:00 12/01/17 05:21 Synthroid PO 175 mcg DAILY@0600 [facility] Administration Metoprolol Tartrate 25 mg 11/26/17 18:00 12/01/17 05:20 Lopressor (Beta Vaughn) PO 25 mg BID [facility] Administration Multivitamins 1 tablet 11/27/17 08:00 12/01/17 08:31 Multivitamin PO 1 tablet DAILYCM [facility] Administration Ondansetron HCl 4 mg 11/26/17 13:28 Zofran Odt PO Q6H PRN PRN NAUSEA Oxycodone HCl 5 mg 11/26/17 13:28 11/30/17 01:28 Oxyir PO 5 mg Q6H PRN PRN Administration MODERATE PAIN (4-5/10) Pantoprazole Sodium 20 mg 11/27/17 06:00 12/01/17 05:21 Protonix PO 20 mg DAILY [facility] Administration Polyethylene Glycol 17 gm 11/26/17 18:00 12/01/17 05:24 Miralax PO 17 gm BID [facility] Administration Polysaccharide Iron Complex 150 mg 11/30/17 08:00 12/01/17 08:31 Ferrex 150 PO 150 mg DAILYCM [facility] Administration Senna/Docusate Sodium 2 tablet 11/26/17 18:00 12/01/17 05:22 Senokot-S, Cindy-Colace PO 2 tablet BID [facility] Administration Tuberculin PPD 5 tu 12/04/17 10:00 Tubersol, Aplisol, Ppd ID 12/04/17 10:01 X1 ONE Problem List Chest pain (Acute) Hyperlipidemia (Chronic) COPD (chronic obstructive pulmonary disease) (Chronic) Hypothyroidism (Chronic) Vital Signs Temp Pulse Resp BP Pulse Ox 98.3 F 77 16 121/72 H 94 11/30/17 16:00 12/01/17 05:20 12/01/17 05:19 12/01/17 05:20 12/01/17 05:19 Oxygen Flow Rate (L/min) 1 Oxygen Delivery Method Room Air Weight: 99.79 kg Body Mass Index (BMI) 31.3 Sodium 130 mmol/L (136-145) L 11/27/17 05:20 Potassium 4.6 mmol/L (3.5-5.1) 11/27/17 05:20 Chloride 86 mmol/L (98-107) L 11/27/17 05:20 Carbon Dioxide 37.0 mmol/L (21.0-32.0) H 11/27/17 05:20 Anion Gap 7 (5-15) 11/27/17 05:20 BUN 19 mg/dL (7-18) H 11/27/17 05:20 Creatinine 1.02 mg/dL (0.70-1.30) 11/27/17 05:20 Est GFR (MDRD) Af Amer 94 mL/min (>60) 11/27/17 05:20 Est GFR (MDRD) Non-Af 78 mL/min (>60) 11/27/17 05:20 BUN/Creatinine Ratio 18.6 RATIO (10-20) 11/27/17 05:20 Glucose 92 mg/dL (74-106) 11/27/17 05:20 Assessment/Plan: Psychotropic Medications: Unnecessary Medications: Bowel Regimen: - Provider Comments Provider responsibility: Provider responsible to enter orders to implement recommendations Provider Comments to Recommendations by Pharmacy: Agree
[2017-12-01 15:08] VITALS: BP 118/63; PULSE 86; RESP 17; TEMP 36.2; O2SAT 92
[2017-12-01 17:54] VITALS: BP 118/63; PULSE 86
[2017-12-01] MEDS: oxyCODONE 5 MG Tablet PO (20:24)
[2017-12-01] MEDS: Atorvastatin Calcium 40 MG Tablet PO (20:25)
[2017-12-02] MEDS: oxyCODONE 5 MG Tablet PO (05:13)
[2017-12-02] MEDS: Clopidogrel Bisulfate 75 MG Tablet PO (05:14)
[2017-12-02] MEDS: Levothyroxine 175 MCG Tablet PO (05:14)
[2017-12-02] MEDS: Senna/Docusate Sodium 1 Tablet 2 TABLET PO ×2 (05:14→17:30)
[2017-12-02] MEDS: Pantoprazole Sodium 20 MG Tablet PO (05:14)
[2017-12-02] MEDS: Enoxaparin 40 MG/0.4 ML Syringe SC (05:15)
[2017-12-02 05:17] VITALS: PULSE 75
[2017-12-02] MEDS: Metoprolol Tartrate 25 MG Tablet PO ×2 (05:17→17:30)
[2017-12-02] MEDS: Polyethylene Glycol 3350 17 GM PACKET PO ×2 (06:06→17:30)
[2017-12-02 07:15] VITALS: O2SAT 97
[2017-12-02] MEDS: Aspirin 81 MG TAB.CHEW PO (09:17)
[2017-12-02] MEDS: Multivitamins,Therapeutic Tablet 1 TABLET PO (09:17)
[2017-12-02] MEDS: Iron Polysaccharide Complex 150 MG CAPSULE PO (09:17)
[2017-12-02 10:00] VITALS: PULSE 71; RESP 18; O2SAT 92
[2017-12-02 15:53] VITALS: BP 111/63; PULSE 66; RESP 18; TEMP 36.7; O2SAT 98
[2017-12-02 17:30] VITALS: PULSE 66
[2017-12-02] MEDS: Atorvastatin Calcium 40 MG Tablet PO (21:22)
[2017-12-03 05:56] VITALS: BP 129/76; PULSE 77
[2017-12-03] MEDS: Levothyroxine 175 MCG Tablet PO (05:56)
[2017-12-03] MEDS: Senna/Docusate Sodium 1 Tablet 2 TABLET PO (05:56)
[2017-12-03] MEDS: Pantoprazole Sodium 20 MG Tablet PO (05:56)
[2017-12-03] MEDS: Polyethylene Glycol 3350 17 GM PACKET PO (05:56)
[2017-12-03] MEDS: Clopidogrel Bisulfate 75 MG Tablet PO (05:56)
[2017-12-03] MEDS: Metoprolol Tartrate 25 MG Tablet PO ×2 (05:56→17:32)
[2017-12-03] MEDS: Enoxaparin 40 MG/0.4 ML Syringe SC (05:57)
[2017-12-03] MEDS: oxyCODONE 5 MG Tablet PO ×2 (06:43→20:34)
[2017-12-03 08:20] VITALS: O2SAT 93
[2017-12-03] MEDS: Aspirin 81 MG TAB.CHEW PO (08:26)
[2017-12-03] MEDS: Iron Polysaccharide Complex 150 MG CAPSULE PO (08:26)
[2017-12-03] MEDS: Multivitamins,Therapeutic Tablet 1 TABLET PO (08:26)
[2017-12-03 10:00] VITALS: PULSE 74; RESP 18; O2SAT 94
[2017-12-03 15:39] VITALS: BP 119/65; PULSE 77; RESP 18; TEMP 36.7; O2SAT 96
[2017-12-03 17:32] VITALS: BP 119/65; PULSE 77
[2017-12-03] MEDS: Atorvastatin Calcium 40 MG Tablet PO (20:31)
[2017-12-04 05:32] VITALS: BP 126/69; PULSE 84
[2017-12-04] MEDS: Metoprolol Tartrate 25 MG Tablet PO ×2 (05:32→17:41)
[2017-12-04] MEDS: Pantoprazole Sodium 20 MG Tablet PO (05:33)
[2017-12-04] MEDS: Levothyroxine 175 MCG Tablet PO (05:33)
[2017-12-04] MEDS: Clopidogrel Bisulfate 75 MG Tablet PO (05:33)
[2017-12-04] MEDS: Enoxaparin 40 MG/0.4 ML Syringe SC (05:35)
[2017-12-04] MEDS: oxyCODONE 5 MG Tablet PO ×2 (05:57→13:33)
[2017-12-04 05:58] LABS: Anion Gap 8 (5-15); BUN 15 mg/dL (7-18); BUN/Creat Ratio 14.4 RATIO (10-20); Calcium,Total 9.1 mg/dL (8.5-10.1); Chloride 93 mmol/L (98-107); Creatinine, Serum 1.04 mg/dL (0.70-1.30); EST Glomerular Filtration Rate 76 mL/min (>60); Est Glom Filt Rate - Afr Amer 92 mL/min (>60); Estimated Creatinine Clearance 72.14 ml/min; Glucose 88 mg/dL (74-106); Potassium 4.5 mmol/L (3.5-5.1); Sodium Level 133 mmol/L (136-145)
[2017-12-04 06:30] VITALS: PULSE 69; RESP 16; O2SAT 92
[2017-12-04 06:40] VITALS: O2SAT 95
[2017-12-04] MEDS: Multivitamins,Therapeutic Tablet 1 TABLET PO (07:26)
[2017-12-04] MEDS: Aspirin 81 MG TAB.CHEW PO (07:26)
[2017-12-04] MEDS: Iron Polysaccharide Complex 150 MG CAPSULE PO (07:26)
--- NOTE | 2017-12-04 10:31 | NURSING ---
PT LEFT AT 7:30AM TO [facility]. TAKING PT.
--- NOTE | 2017-12-04 13:16 | CASEMGMT ---
Insurance Clinical update faxed. Will await continued stay determination. ANAND Byrne
--- NOTE | 2017-12-04 13:28 | NURSING ---
PT RETURNED FROM APPOINTMENT @ 0801.
[2017-12-04] MEDS: Tuberculin,Purif.prot.deriv. 50 TU/ML Vial 5 ML ID (13:46)
--- NOTE | 2017-12-04 14:32 | NURSING ---
Pt. 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 NO to increase fluid restriction to 2L daily. DEXTER wrap to right leg daily (harvest site), follow up with PCP 1 week after discharge and follow up with cardiology as scheduled.
[2017-12-04 16:00] VITALS: BP 122/66; PULSE 74; RESP 14; TEMP 36.7; O2SAT 94
[2017-12-04 17:41] VITALS: BP 122/66; PULSE 74
[2017-12-04] MEDS: Senna/Docusate Sodium 1 Tablet 2 TABLET PO (17:41)
[2017-12-04] MEDS: Polyethylene Glycol 3350 17 GM PACKET PO (17:42)
[2017-12-04] MEDS: Atorvastatin Calcium 40 MG Tablet PO (20:27)
[2017-12-05] MEDS: Senna/Docusate Sodium 1 Tablet 2 TABLET PO ×2 (05:38→16:49)
[2017-12-05] MEDS: Polyethylene Glycol 3350 17 GM PACKET PO ×2 (05:38→16:49)
[2017-12-05] MEDS: Clopidogrel Bisulfate 75 MG Tablet PO (05:38)
[2017-12-05 05:39] VITALS: BP 116/62; PULSE 79
[2017-12-05] MEDS: Pantoprazole Sodium 20 MG Tablet PO (05:39)
[2017-12-05] MEDS: Metoprolol Tartrate 25 MG Tablet PO ×2 (05:39→16:49)
[2017-12-05] MEDS: Levothyroxine 175 MCG Tablet PO (05:39)
[2017-12-05] MEDS: Enoxaparin 40 MG/0.4 ML Syringe SC (05:42)
[2017-12-05 07:00] VITALS: O2SAT 92
[2017-12-05] MEDS: Multivitamins,Therapeutic Tablet 1 TABLET PO (07:55)
[2017-12-05] MEDS: Aspirin 81 MG TAB.CHEW PO (07:55)
[2017-12-05] MEDS: Iron Polysaccharide Complex 150 MG CAPSULE PO (07:55)
[2017-12-05 11:30] VITALS: O2SAT 92
--- NOTE | 2017-12-05 15:13 | CASEMGMT ---
Insurance/Social Work Continued stay denied with last covered day 12/07/17 and d/c 12/08/17. Met with pt in room and informed of d/c. He expresses understanding and plans to return home with at time of d/c. Pt requesting SW notify of insurance determination. Phone call to pt and she feels pt is ready for d/c home. Pt has needed DME and a second hand rail for flight of stairs is being installed. SW informed pt that therapy is recommending continued therapy and offered home health vs outpt. will talk to pt and notify SW of desire. SW to follow for d/c planning. NOMNOC faxed to insurance. ANAND Byrne
[2017-12-05 16:00] VITALS: BP 122/65; PULSE 90; RESP 16; TEMP 36.8; O2SAT 97
[2017-12-05 16:49] VITALS: PULSE 90
[2017-12-05] MEDS: oxyCODONE 5 MG Tablet PO (19:59)
[2017-12-05] MEDS: Atorvastatin Calcium 40 MG Tablet PO (20:00)
--- NOTE | 2017-12-05 20:25 | PCM.DC ---
- Discharge Diagnoses Current Active Problems: Current Active and Chronic Problems Chest pain (Acute) Hyperlipidemia (Chronic) COPD (chronic obstructive pulmonary disease) (Chronic) Hypothyroidism (Chronic) You will use the following diet at home:: No restrictions, Regular Your food should be the consistency of: Regular Your liquids should be the consistency of: Regular/Thin Discharge Activity: Return to Normal Activity, May Shower, Use Walker May resume sexual activity in: 6-8 weeks Weight Bearing Status: Weight bearing as tolerated Call your doctor if you observe: Fever of 101 or Higher, Inability to urinate, Inability to have a bowel movement, Shortness of breath, Chest pain, Uncontrolled pain Allergies/Adverse Reactions: Allergies No Known Allergies Allergy (Verified 05/08/13 00:18) Medications to take at Discharge Aspirin [Aspirin, Baby] 81 mg PO DAILY@0800 11/26/17 Acetaminophen [Tylenol] 1,000 mg PO Q8H PRN tablet 12/05/17 Albuterol Inhaler [Ventolin Hfa] 1 puff INHALATION Q4H PRN PRN #1 inhaler 12/05/17 Atorvastatin Calcium [Lipitor] 40 mg PO QHS #30 tab 12/05/17 Clopidogrel Bisulfate [Clopidogrel] 75 mg PO DAILY #30 tab 12/05/17 Iron Polysaccharide Complex [Ferrex 150] 150 mg PO DAILYCM #30 cap 12/05/17 Levothyroxine Sodium [Levoxyl] 175 mcg PO DAILY #30 tab 12/05/17 Metoprolol Tartrate 25 mg PO BID #60 tab 12/05/17 Multivitamins,Therapeutic [Multivitamin] 1 tablet PO DAILYCM tablet 12/05/17 Oxycodone [Oxyir] 5 mg PO Q6H PRN PRN #28 tab 12/05/17 Pantoprazole Sodium [Protonix] 20 mg PO DAILY #30 tab 12/05/17 Polyethylene Glycol 3350 [Miralax] 17 gm PO BID #60 packet 12/05/17 The following prescriptions were given: Albuterol Inhaler [Ventolin Hfa] 1 puff INHALATION Q4H PRN PRN #1 inhaler PRN Reason: Shortness Of Breath Oxycodone [Oxyir] 5 mg PO Q6H PRN PRN #28 tab PRN Reason: Moderate Pain (4-5/10) Atorvastatin Calcium [Lipitor] 40 mg PO QHS #30 tab Clopidogrel Bisulfate [Clopidogrel] 75 mg PO DAILY #30 tab Iron Polysaccharide Complex [Ferrex 150] 150 mg PO DAILYCM #30 cap Levothyroxine Sodium [Levoxyl] 175 mcg PO DAILY #30 tab Pantoprazole Sodium [Protonix] 20 mg PO DAILY #30 tab Metoprolol Tartrate 25 mg PO BID #60 tab Polyethylene Glycol 3350 [Miralax] 17 gm PO BID #60 packet Primary Care Physician: Cornel Abreu MD [Primary Care Provider] - Please follow up with your Primary Care Physician in: 1 week. Test Results: Test results from this visit will be discussed in further detail at your follow-up appointment, if applicable. Please Follow Up With: [facility]/MANUFACTURING CONTROLS ENGINEER When: 2 weeks. Proposed Discharge Date: 12/08/17
--- NOTE | 2017-12-05 20:27 | PCM.DC.SUM ---
Discharge Date and Diagnosis - Problem List Patient Problems: Active and Suspected Problems Chest pain (Acute) Date of Admission: 11/26/17 Date of Discharge: 12/08/17 - Primary Discharge Diagnosis Active and Suspected Problems Chest pain (Acute) - Secondary Discharge Diagnosis Chronic Problems Dyslipidemia (Chronic) Hypertension (Chronic) Right hemidiaphragm palsy (Chronic) Coronary artery disease (Chronic) Hyperlipidemia (Chronic) COPD (chronic obstructive pulmonary disease) (Chronic) Hypothyroidism (Chronic) Hospital Course and Treatment Imaging Results: 11/26/17 13:33 Diet: Cardiac/Low Cholesterol Food consistency:: Regular Liquid Consistency:: Regular/Thin Dietary Modifications:: Fluid Restricted Diet Is pt able to select menu?: Yes Diet Comments: DULCE, 2000mL FR Labs (Last 48 Hours) 12/04/17 05:15 Sodium 133 L Potassium 4.5 Chloride 93 L Carbon Dioxide 32.0 Anion Gap 8 BUN 15 Creatinine 1.04 Estim Creat Clear Calc 72.14 Est GFR (MDRD) Af Amer 92 Est GFR (MDRD) Non-Af 76 BUN/Creatinine Ratio 14.4 Glucose 88 Calcium 9.1 Operations: None Procedures: None Summary of Care Provided: The patient is a 67 year old Male with below past medical history hospitalized for chest pain, NSTEMI, underwent CABG x 4 11/16/3017 at [facility], admitted to TCU with debility, here for rehabilitation, strengthening, prior to discharge home with significant other. Discharge home with spouse, and Home Health services. Discharge Diet: No Restrictions Discharge Activity: Return to Normal Activity, May Shower, Use Walker May resume sexual activity in: 6-8 weeks Weight Bearing Status: Weight bearing as tolerated Call your doctor if you observe: Fever of 101 or Higher, Inability to urinate, Inability to have a bowel movement, Shortness of breath, Chest pain, Uncontrolled pain Home Medications: Medications to take at Discharge Aspirin [Aspirin, Baby] 81 mg PO DAILY@0800 11/26/17 Acetaminophen [Tylenol] 1,000 mg PO Q8H PRN tablet 12/05/17 Albuterol Inhaler [Ventolin Hfa] 1 puff INHALATION Q4H PRN PRN #1 inhaler 12/05/17 Atorvastatin Calcium [Lipitor] 40 mg PO QHS #30 tab 12/05/17 Clopidogrel Bisulfate [Clopidogrel] 75 mg PO DAILY #30 tab 12/05/17 Iron Polysaccharide Complex [Ferrex 150] 150 mg PO DAILYCM #30 cap 12/05/17 Levothyroxine Sodium [Levoxyl] 175 mcg PO DAILY #30 tab 12/05/17 Metoprolol Tartrate 25 mg PO BID #60 tab 12/05/17 Multivitamins,Therapeutic [Multivitamin] 1 tablet PO DAILYCM tablet 12/05/17 Oxycodone [Oxyir] 5 mg PO Q6H PRN PRN #28 tab 12/05/17 Pantoprazole Sodium [Protonix] 20 mg PO DAILY #30 tab 12/05/17 Polyethylene Glycol 3350 [Miralax] 17 gm PO BID #60 packet 12/05/17 Following Prescrptions Were Given to Patient: Albuterol Inhaler [Ventolin Hfa] 1 puff INHALATION Q4H PRN PRN #1 inhaler PRN Reason: Shortness Of Breath Oxycodone [Oxyir] 5 mg PO Q6H PRN PRN #28 tab PRN Reason: Moderate Pain (4-5/10) Atorvastatin Calcium [Lipitor] 40 mg PO QHS #30 tab Clopidogrel Bisulfate [Clopidogrel] 75 mg PO DAILY #30 tab Iron Polysaccharide Complex [Ferrex 150] 150 mg PO DAILYCM #30 cap Levothyroxine Sodium [Levoxyl] 175 mcg PO DAILY #30 tab Pantoprazole Sodium [Protonix] 20 mg PO DAILY #30 tab Metoprolol Tartrate 25 mg PO BID #60 tab Polyethylene Glycol 3350 [Miralax] 17 gm PO BID #60 packet Primary Care Physician: Cornel Abreu MD [Primary Care Provider] - Please follow up with your Primary Care Physician in: 1 week. Please Follow Up With: [facility]/HOT DIP PLATER When: 2 weeks. Disposition: Home with Home Health Minutes spent on discharge:: 35 Patient Condition:: Stable Medical Necessity - Tobacco Use Smoking Status: Former smoker Tobacco Use: Non-smoker Meaningful Use Info Meaningful Use Diagnoses (Choose all that apply): None applicable
--- NOTE | 2017-12-05 20:29 | PCM.PN.HH ---
Home Health Note - Plan Overview of reason of hospitalization: The patient is a 67 year old Male with below past medical history hospitalized for chest pain, NSTEMI, underwent CABG x 4 11/16/3017 at [facility], admitted to TCU with debility, here for rehabilitation, strengthening, prior to discharge home with significant other. Discharge home with spouse, and Home Health services. Problems: Patient was seen for Chest pain (Acute) Hyperlipidemia (Chronic) COPD (chronic obstructive pulmonary disease) (Chronic) Hypothyroidism (Chronic) Complete List of Medical Problems Atypical chest pain (Acute) Dyslipidemia (Chronic) Hypertension (Chronic) Right hemidiaphragm palsy (Chronic) Non-STEMI (non-ST elevated myocardial infarction) (Acute) Coronary artery disease (Chronic) LV dysfunction (Acute) Chest pain (Acute) Hyperlipidemia (Chronic) COPD (chronic obstructive pulmonary disease) (Chronic) Hypothyroidism (Chronic) - Requirements and Reasons Disciplines Needed/Ordered: Physical Therapy Reason for Disciplines: Disease Specific Monitoring/education, Gait Training, Fall Prevention, Balance and/or Posture Training Related To: Change in Medical Treatment Plan, Limited/Poor Endurance, Shortness of Breath with Activity, Physical Impairments, Unsteady Gait/Balance Patient is unable to leave the home: Without Aid of Supportive Devices (crutches, cane, wheelchair, walker), Without the assistance of another person - Additional Disciplines Additional Disciplines Needed/Ordered: Occupational Therapy
[2017-12-06 05:25] VITALS: PULSE 75
[2017-12-06] MEDS: Metoprolol Tartrate 25 MG Tablet PO ×2 (05:25→16:42)
[2017-12-06] MEDS: oxyCODONE 5 MG Tablet PO (05:26)
[2017-12-06] MEDS: Senna/Docusate Sodium 1 Tablet 2 TABLET PO ×2 (05:26→16:54)
[2017-12-06] MEDS: Levothyroxine 175 MCG Tablet PO (05:26)
[2017-12-06] MEDS: Pantoprazole Sodium 20 MG Tablet PO (05:26)
[2017-12-06] MEDS: Clopidogrel Bisulfate 75 MG Tablet PO (05:26)
[2017-12-06] MEDS: Polyethylene Glycol 3350 17 GM PACKET PO ×2 (05:27→16:42)
[2017-12-06] MEDS: Enoxaparin 40 MG/0.4 ML Syringe SC (05:27)
[2017-12-06 06:16] LABS: Absolute Lymphocyte Count 0.54 X10^3/ul (0.83-4.51); Absolute Neutrophil Count 3.5 X10^3/uL (2.0-7.7); Basophil# 0.02 X10^3/uL; Basophil% 0.4 % (0-1); Eosinophil# 0.19 X10^3/uL; Eosinophils% 3.8 % (0-5); Hematocrit 28.3 % (40-54); Lymphocyte # 0.54 X10^3/ul (4.0); Lymphocyte % 10.7 % (19-41); Mean Corp Hgb Conc 31.8 g/gl (32-36); Mean Corpuscular Hgb 30.1 pg (27.0-32.0); Mean Corpuscular Volume 94.6 fL (80-94); Mean Platelet Vol. 8.7 fl (6.2-12.0); Monocyte# 0.75 X10^3/uL; Monocyte% 14.9 % (0-10); Neutrophil # 3.52 X10^3/uL (2.7-7.7); Platelet Count 325 K/mm3 (150-450); RBC Distribution Width CV 14.9 % (11.6-14.6); RBC Distribution Width SD 50.4 fl (35.1-43.9); Red Blood Count 2.99 M/mm3 (4.6-6.2)
[2017-12-06 06:19] LABS: Differential Indicated SCAN CRITERIA MET; POSITIVE COUNT NO; POSITIVE DIFFERENTIAL YES; POSITIVE MORPHOLOGY NO
[2017-12-06] MEDS: Multivitamins,Therapeutic Tablet 1 TABLET PO (08:04)
[2017-12-06] MEDS: Aspirin 81 MG TAB.CHEW PO (08:04)
[2017-12-06] MEDS: Iron Polysaccharide Complex 150 MG CAPSULE PO (08:04)
[2017-12-06 08:05] VITALS: O2SAT 97
[2017-12-06 08:07] LABS: Hypochromasia 1+
[2017-12-06 08:28] VITALS: PULSE 72; RESP 18; O2SAT 94
[2017-12-06 16:00] VITALS: BP 114/65; PULSE 78; RESP 14; TEMP 36.4; O2SAT 98
[2017-12-06 16:42] VITALS: BP 114/65; PULSE 78
[2017-12-06] MEDS: Atorvastatin Calcium 40 MG Tablet PO (20:40)
[2017-12-07] MEDS: oxyCODONE 5 MG Tablet PO (06:39)
[2017-12-07] MEDS: Polyethylene Glycol 3350 17 GM PACKET PO (06:41)
[2017-12-07 06:42] VITALS: BP 138/83; PULSE 89
[2017-12-07] MEDS: Senna/Docusate Sodium 1 Tablet 2 TABLET PO (06:42)
[2017-12-07] MEDS: Pantoprazole Sodium 20 MG Tablet PO (06:42)
[2017-12-07] MEDS: Clopidogrel Bisulfate 75 MG Tablet PO (06:42)
[2017-12-07] MEDS: Levothyroxine 175 MCG Tablet PO (06:42)
[2017-12-07] MEDS: Metoprolol Tartrate 25 MG Tablet PO ×2 (06:42→18:31)
[2017-12-07] MEDS: Enoxaparin 40 MG/0.4 ML Syringe SC (06:43)
[2017-12-07 06:58] VITALS: O2SAT 93
[2017-12-07 07:00] VITALS: PULSE 88; RESP 20; O2SAT 93
[2017-12-07] MEDS: Multivitamins,Therapeutic Tablet 1 TABLET PO (09:10)
[2017-12-07] MEDS: Aspirin 81 MG TAB.CHEW PO (09:10)
[2017-12-07] MEDS: Iron Polysaccharide Complex 150 MG CAPSULE PO (09:11)
--- NOTE | 2017-12-07 11:28 | CASEMGMT ---
Social Work Pt planning on discharge on Monday12/08/17. Pt to go home with who can assist as needed and provide transportation. Pt requesting outpt PT at [facility]. Referral made and will fax order when obtained. SW spoke with pt and she is agreeable to above d/c plan. Pt requesting info on area endocrinologists. Information left in pt room for to mushroom picker. No further d/c needs at this time. Plan: home with outpt PT ANAND Byrne
[2017-12-07 15:33] VITALS: BP 126/50; PULSE 90; RESP 18; TEMP 36.8; O2SAT 95
[2017-12-07 18:31] VITALS: BP 126/50; PULSE 90
[2017-12-07] MEDS: Atorvastatin Calcium 40 MG Tablet PO (21:08)
[2017-12-08 07:00] VITALS: PULSE 88; RESP 18; O2SAT 94
[2017-12-08] MEDS: Senna/Docusate Sodium 1 Tablet 2 TABLET PO (07:06)
[2017-12-08] MEDS: Polyethylene Glycol 3350 17 GM PACKET PO (07:06)
[2017-12-08 07:07] VITALS: BP 134/63; PULSE 89
[2017-12-08] MEDS: Metoprolol Tartrate 25 MG Tablet PO (07:07)
[2017-12-08] MEDS: Levothyroxine 175 MCG Tablet PO (07:08)
[2017-12-08] MEDS: Clopidogrel Bisulfate 75 MG Tablet PO (07:08)
[2017-12-08] MEDS: Pantoprazole Sodium 20 MG Tablet PO (07:08)
[2017-12-08] MEDS: Enoxaparin 40 MG/0.4 ML Syringe SC (07:09)
[2017-12-08] MEDS: Iron Polysaccharide Complex 150 MG CAPSULE PO (09:09)
[2017-12-08] MEDS: Multivitamins,Therapeutic Tablet 1 TABLET PO (09:09)
[2017-12-08] MEDS: Aspirin 81 MG TAB.CHEW PO (09:09)
[2017-12-08 11:23] VITALS: BP 134/69; PULSE 83; RESP 18; TEMP 36.4; O2SAT 95
--- NOTE | 2017-12-08 13:24 | MDS.RN ---
Information for the mds was obtained from review of the clinical record, interview of resident, staff, and direct observation of resident's care.
== END 2017-12-08 11:50 | disposition home or self-care (01) | DRG 949 ==
PROVIDERS: Admitting Provider Family Medicine Geriatric Medicine; Family Provider Family Medicine; PCP Family Medicine; Visit Provider Family Medicine Geriatric Medicine
DX: Z48.812 Encounter for surgical aftercare following surgery on the circulatory system (principal); I21.4 Non-ST elevation (NSTEMI) myocardial infarction; I25.10 Atherosclerotic heart disease of native coronary artery without angina pectoris; Z95.1 Presence of aortocoronary bypass graft; J44.9 Chronic obstructive pulmonary disease, unspecified; K21.9 Gastro-esophageal reflux disease without esophagitis; E03.9 Hypothyroidism, unspecified; E78.5 Hyperlipidemia, unspecified; I10 Essential (primary) hypertension; Z87.891 Personal history of nicotine dependence; Z23 Encounter for immunization
CPT/HCPCS: 36415; 80048; 85025; 97110; 97116; 97163; 97167; 97530; 97535; 97802; 99406; 90670

== ENCOUNTER 2018-01-05 12:30 | Outpatient (RCR) | payer MEDICARE, SELFPAY ==
--- NOTE | 2017-12-14 16:15 | HP.PTEVAL_ITS ---
Patient's Visit Information YA NATH is a 67 year old M referred to Physical Therapy by Dawson Fernandez with a diagnosis of CABG x3. Date of Evaluation: 12/14/17 Physical Therapist: Anisha Palomo - Visit Plan Frequency: 3x /Week Duration: 3 Weeks Plan: PT services 3x week for 3 weeks to focus on LE strength, balance, gait training with LRD, and increased endurance. - Subjective Subjective: Pt had quadruple coronary artery bypass three weeks ago. No complications. Stayed at [facility] for 1 week following surgery then transferred to TCU in [place] for couple weeks. Received PT services in hospital and worked on ambulation and transitioning. D/C home about 4 days ago. No specific pain currently or within last week. No numbness/tingling in extremities. Occasionally takes Tylenol for body aches. Prefers to sit in chair with straight back and sleeps throughout night in that chair. 2 story home, chair is on first floor so only required to negotiate stairs to take shower upstairs. Uses wheeled walker at home. Did not use AD in past. Used 4 point forward walker in public. Occasionally feels unstable, but no recent falls. Lives at home with but is at work from 8-5. Able to walk around house and pick things up with tool. Has not returned to driving yet. Has not tried to clean or perform many daily tasks yet. Enjoys walking and would like to be able to walk longer distances. PMH include tonsile removal; see chart for complete list. Medications include have not changed since last physician visit; see chart for complete list. F/U with physician in 4 weeks. - Objective Gait: pt. ambulates with 4 point forward walker-shuffled gait and decreased deandre with this device. When use 4 point walker with wheels, able to walk with more functional deandre and heel toe pattern. Pt. was not aware when approaching small threshold such as mats on the ground or between doorways; able to lift walker after realizing presence of threshold. Stairs: negotiate stairs with step to pattern using 2 HR for support; decreased speed to remain under control. Posture: rounded shoulders, flexed trunk when seated. Dermatomes: UE and LE inact bilat. AROM: Cervical: flex. WFL, ext. approx 10 deg, side bend L 30 deg, R 15 deg, rotation bilat 30 deg. Shoulder flex. WFL, abd. approx 130 deg, IR R reach low back, IR L reach mid back. Elbow, wrist, opposition WNL. Lumbar: flex WFL, ext. approx 15 deg, side bend reach to knee bilat., rotation WFL. Hip flex R approx 100 deg limited by soreness from graft taken for surgery. Hip, knee, ankle WFL. Functional: able to heel and toe raise without UE support but standby guard. Balance: SL on L 3 seconds without support, R leg 8 seconds with UE support on table. Strength: shoulder abd. 4/5, flex. IR, ER 5/5. Scapular strength good. Elbow and wrist 5/5 throughout. R hip flex. 3/5 due to pain from surgery. R hip ext. 5/5, L hip 5/5 throughout, knee and ankle 5/5 throughout. Core strength fair. SOB noted after strength testing UE. Reflexes: patellar bilat. 1+, Achilles 0. Flexibility: hamstring and gastroc mild restriction. - Goals Goal 1:: Patient will be I with HEP and progressions. Goal Time Frame: 4-6 Weeks Goal 2:: Patient will demonstrate proper posture throughout session to show increased core stability. Goal Time Frame: 4-6 Weeks Goal 3:: Patient will amublate 300' with LRD without breaks or significant SOB to demonstrate increased endurance and LE strength. Goal Time Frame: 4-6 Weeks Goal 4:: Patient will demonstrate increased balance by standing on a single leg for 10 seconds without UE support on a stable surface. Goal Time Frame: 4-6 Weeks - Rehabilitation Potential Physical Therapy Diagnosis: Patient presents with hypomobility. Decreased endurance and minor strength deficits limiting patient from functional mobility for long distances with LRD. Rehabilitation Potential: Good - Anticipated Interventions Patient/Client Instruction: Educate patient on: Condition, Plan of Care For the Purpose of:: To improve ability to perform ADL's Therapeutic Exercise to Include: Strength training, Power training, Endurance training, Balance training, Coordination, Postural training, Gait and locomotor training, Dynamic Lumbar Stabilization For the Purpose of:: To improve muscle performance and motor function, To improve ability to perform ADL's, To improve performance and independence with ADL's, To improve gait and locomotor functions, To improve endurance, To improve balance, To improve safety with gait, To assume or resume ADL's, To improve safety TENS: Yes Cryotherapy (ice pack, ice massage): Yes For the Purpose of:: To decrease pain Thank you for the opportunity to evaluate your patient. For Medicare and Medicare HMO plans, please review the plan of care and approve it. It will need to be FAXED BACK to us at [phone] for Medicare purposes. Please let me know if there are questions or concerns regarding this plan of care. Physician Signature: Date:
--- NOTE | 2018-01-05 12:53 | HP.PTDCSUM ---
HP - PT D/C Summary It has been my pleasure to treat YA NATH under orders from Dawson Fernandez, for the diagnosis of CABG x3 for a total of 10 visit(s). Discharge Date: Please see the following information for a summary of their discharge status. - Subjective Subjective: Patient reports he likes therapy but feels its to much money. He feels that he has gotten better and a lot stronger. No longer uses the cane. - Pain RIGHT KNEE Pain Intensity (Out of 10): 0 - Overall Improvement % Improvement: 80 - Objective Objective/Function: Gait: pt. ambulates with no assistive device- short step length with toes turned out to the side- uses aldridge when available Stairs: negotiate stairs with recip pattern and 1 HR Posture: rounded shoulders, flexed trunk when seated. Balance: SL on L 30 seconds with support, R leg 30 seconds with UE support on table. Strength: shoulder abd. 4+/5, flex. IR, ER 5/5. Scapular strength good. Elbow and wrist 5/5 throughout. R hip flex. 4+/5 . R hip ext. 5/5, L hip 5/5 throughout, knee and ankle 5/5 throughout. Core strength fair. SOB noted after strength testing le. - Goals Goal 1:: Patient will be I with HEP and progressions. Goal Progress: Progressing Goal 2:: Patient will demonstrate proper posture throughout session to show increased core stability. Goal Progress: Progressing Goal 3:: Patient will amublate 300' with LRD without breaks or significant SOB to demonstrate increased endurance and LE strength. Goal Progress: Goal Met Goal 4:: Patient will demonstrate increased balance by standing on a single leg for 10 seconds without UE support on a stable surface. Goal Progress: Progressing - Plan Plan: Discharge to [facility] - D/C Information If there are questions or concerns regarding this patient's physical therapy, please feel free to call me at [phone]. Thank you for the referral of this patient. Sincerely, Anisha Palomo
== END 2018-01-05 19:00 | disposition home or self-care (01) ==
LOC: PT 12:30
PROVIDERS: Family Provider Family Medicine; PCP Family Medicine; Referring Provider Family Medicine Geriatric Medicine; Visit Provider Family Medicine Geriatric Medicine
DX: Z95.1 Presence of aortocoronary bypass graft (principal)
CPT/HCPCS: 97110; 97161; 97164

== ENCOUNTER → 2018-05-02 09:52 | Outpatient (CLI) | payer MEDICARE, SELFPAY ==
[2018-04-27 13:17] VITALS: BMI 28.8
[2018-05-02 12:11] LABS: AST(SGOT) 22 U/L (15-37); Alanine Aminotransfer ALT/SGPT 35 U/L (16-61); Albumin, Serum 3.7 g/dL (3.2-5.0); Alkaline Phosphatase 96 U/L (45-117); Bilirubin, Direct 0.23 mg/dL (0.00-0.30); Cholesterol 120 mg/dL (200); Globulin 3.8 g/dL (2.2-4.2); High Density Lipoprotein 40 mg/dL; Protein, Total 7.5 g/dL (6.4-8.2); Triglycerides 95 mg/dL; Very Low Density Lipoprotein 19 mg/dL (5-40)
== END ==
PROVIDERS: Family Provider Family Medicine; PCP Family Medicine; Referring Provider Internal Medicine Cardiovascular Disease; Visit Provider Internal Medicine Cardiovascular Disease
DX: E78.5 Hyperlipidemia, unspecified (principal)
CPT/HCPCS: 36415; 80061; 80076

== ENCOUNTER → 2018-05-21 12:52 | Outpatient (CLI) | payer BC, SELFPAY ==
[2018-04-27 13:17] VITALS: BMI 28.8
--- NOTE | 2018-05-21 12:57 | ECHOD_ITS ---
Reason For Study: CAD/ASHD Procedure This was a 2D Doppler, Color Flow transthoracic echocardiogram. Exam performed in department. Left Ventricle Normal size and thickness. The estimated ejection fraction is 65 %. Normal diastology for age. No regional wall motion abnormalities noted. Right Ventricle Normal size and thickness. Normal systolic function. Atria The left atrium is mildly enlarged. Normal right atrium. Normal atrial septum. Mitral Valve The mitral valve is structurally normal. No prolapse or stenosis seen. Tricuspid Valve Normal tricuspid valve. Mild (1+) tricuspid valve insufficiency. Right ventricular systolic pressure estimated to be 50 mmHg. Moderate pulmonary hypertension. Aortic Valve Normal aortic valve. Trisinus/trileaflet aortic valve. Pulmonic Valve Normal pulmonic valve. Mild (1+) pulmonic valve insufficiency. Great Vessels Normal aortic root. Normal arch. Normal inferior vena cava. Inferior vena cava collapse with sniff. Pericardium/Pleural No pericardial effusion. MMode/2D Measurements & Calculations LVIDd: 5.3 cm IVSd: 1.1 cm Ao root diam: 3.3 cm LVIDs: 3.0 cm LVPWd: 0.99 cm LA dimension: 4.4 cm FS: 43.0 % LAV(MOD-bp): 57.6 ml LA A4 area: 21.2 cm2 RA A4 area: 17.6 cm2 LAV(MOD-bp) Indexed: 27.4 ml/m2 LAV(MOD-sp2): 51.9 ml LAV(MOD-sp4): 61.4 ml Time Measurements MV dec time: 0.18 sec Doppler Measurements & Calculations MV E max mauro: 98.8 cm/sec Lat Peak E' Mauro: 10.8 cm/sec Med Peak E' Mauro: 8.1 cm/sec MV A max mauro: 86.7 cm/sec E/E' lat: 9.2 E/E' med: 12.2 MV E/A: 1.1 MV V2 max: 102.1 cm/sec MV P1/2t max mauro: 102.1 cm/sec Ao V2 max: 126.2 cm/sec MV max P.2 mmHg MV P1/2t: 78.0 msec Ao max P.4 mmHg MV V2 mean: 62.5 cm/sec MV dec slope: 383.2 cm/sec2 Ao V2 mean: 74.2 cm/sec MV mean P.8 mmHg MVA(P1/2t): 2.8 cm2 Ao mean P.7 mmHg MV V2 VTI: 26.5 cm Ao V2 VTI: 22.4 cm LV V1 max: 103.1 cm/sec PA V2 max: 99.2 cm/sec TR max mauro: 336.3 cm/sec LV V1 max P.3 mmHg TR max P.2 mmHg LV V1 mean P.0 mmHg LV V1 mean: 64.1 cm/sec LV V1 VTI: 20.0 cm Interpretation Summary The estimated ejection fraction is 65 %. Normal diastology for age. The left atrium is mildly enlarged. Mild (1+) tricuspid valve insufficiency. Right ventricular systolic pressure estimated to be 50 mmHg. Moderate pulmonary hypertension. Compared to echo report dated 11/13/2017, LV function has improved from 50% to 65%. RVSP not noted at that time. Ordering Physician: Da Leija Referring Physician: Da Leija Performed By: Harry Guy RCS
== END ==
PROVIDERS: Family Provider Family Medicine; PCP Family Medicine; Referring Provider Internal Medicine Cardiovascular Disease; Visit Provider Internal Medicine Cardiovascular Disease
DX: I25.10 Atherosclerotic heart disease of native coronary artery without angina pectoris (principal); I25.2 Old myocardial infarction; Z95.1 Presence of aortocoronary bypass graft
CPT/HCPCS: 93306

== ENCOUNTER 2021-04-19 10:44 | Emergency (ER) | payer MEDICARE, SELFPAY ==
[2021-04-19 10:45] VITALS: BP 139/76; PULSE 73; RESP 22; TEMP 36.3; O2SAT 95; BMI 31.7
[2021-04-19 10:56] VITALS: O2SAT 88; O2SAT 95
--- NOTE | 2021-04-19 10:58 | EKG12_ITS ---
Test Reason : SOB Blood Pressure : / mmHG Vent. Rate : 068 BPM Atrial Rate : 068 BPM P-R Int : 166 ms QRS Dur : 090 ms QT Int : 384 ms P-R-T Axes : 055 001 045 degrees QTc Int : 408 ms Normal sinus rhythm Normal ECG Confirmed by LIEN VASQUEZ, DENIZ ([id number]), department editor AJAY VANCE ([id number]) on 04/20/2021 8:36:14 AM Referred By: Confirmed By:DENIZ EMMANUEL MD
--- NOTE | 2021-04-19 11:01 | EX.ED.DYSGE1 ---
HPI History of Present Illness Chief Complaint: Shortness of Breath Informant: patient and spouse/S.O. Narrative Narrative: 71-year-old male presenting to the emergency department with shortness of breath. Patient states that he tested positive at [facility] urgent care last Monday for COVID-19. He states his original symptoms were cough and shortness of breath. He states he was getting better but today is significantly more short of breath. He denies any fever he states his cough is improved. He reports being on Xarelto and denies missing any doses. No vomiting or diarrhea. He states he has a history of asthma as well as coronary artery disease. He has a paralyzed right diaphragm. He states his albuterol inhaler is drying his lungs up and he cannot breathe. [facility] Medical History Atherosclerotic heart disease of [place] coronary artery without angina pectoris COPD (chronic obstructive pulmonary disease) Deep vein thrombosis, lower left extremity (09/09/20) Essential (primary) hypertension History of non-ST elevation myocardial infarction (NSTEMI) (11/14/17) Hyperlipidemia Hypothyroidism Non-STEMI (non-ST elevated myocardial infarction) Right hemidiaphragm palsy Secondary pulmonary arterial hypertension Home Medications aspirin 81 mg PO DAILY@0800 11/26/17 [History Last Taken Unknown] acetaminophen 1,000 mg PO Q8H PRN tab 12/05/17 [Rx Last Taken Unknown] albuterol sulfate 1 puff INHALATION Q4H PRN PRN #1 inhaler 12/05/17 [Rx Last Taken Unknown] atorvastatin 40 mg PO QHS #30 tab 12/05/17 [Rx Last Taken Unknown] levothyroxine 175 mcg PO DAILY #30 tab 12/05/17 [Rx Last Taken Unknown] metoprolol tartrate 25 mg PO BID #60 tab 12/05/17 [Rx Last Taken Unknown] multivitamin with folic acid 1 tab PO DAILYCM tab 12/05/17 [Rx Last Taken Unknown] pantoprazole 20 mg PO DAILY #30 tab 12/05/17 [Rx Last Taken Unknown] polysaccharide iron complex 150 mg PO DAILYCM #30 cap 12/05/17 [Rx Last Taken Unknown] antiarthritic combination no.2 900 mg tablet mg PO tab 04/27/18 [History Last Taken Unknown] ginkgo biloba 40 mg tablet 40 mg PO DAILY tab 12/10/18 [History Last Taken Unknown] saw palmetto 160 mg capsule 160 mg PO DAILY cap 12/10/18 [History Last Taken Unknown] melatonin 10 mg capsule 10 mg PO HS PRN 06/17/19 [History Last Taken Unknown] fluticasone propionate 50 mcg/actuation nasal spray,suspension 1 spray INTRANASAL DAILY PRN 09/10/20 [History Last Taken Unknown] rivaroxaban 20 mg tablet 20 mg PO DAILY tab 03/08/21 [History Last Taken Unknown] dexamethasone 6 mg PO DAILY #7 tab 04/19/21 [Rx Last Taken Unknown] Allergy/AdvReac Type Severity Reaction Status Date / Time No Known Allergies Allergy Verified 04/19/21 10:47 Surgical History H/O coronary artery bypass surgery (11/16/17) Social History Smoking Status: Former smoker ROS ROS ED Constitutional Constitutional ED: Denies chills, fever(s) or weight loss Eyes Eyes: Denies change in vision or diplopia ENT ENT ED: Denies ear pain, rhinorrhea or sore throat Cardiovascular Cardiovascular: Denies chest pain, orthopnea, palpitations or racing heartbeat Respiratory/Chest Respiratory/Chest: Reports cough, dyspnea and dyspnea on exertion; Denies orthopnea Gastrointestinal Gastrointestinal: Denies abdominal pain, diarrhea, nausea or vomiting Genitourinary Genitourinary ED: Denies dysuria, hematuria or urinary frequency Musculoskeletal Musculoskeletal: Denies arthralgias or myalgias Integumentary Denies abscess or rash Neurologic Neurologic: Denies headache(s) or weakness Psychiatric Psychiatric: Denies anxiety, depression, suicidal ideation or suicidal thoughts Endocrine Endocrinology: Denies polydipsia, polyphagia or polyuria Allergic/Immunologic Allergic/Immunologic ED: Denies mouth swelling, tongue swelling or urticaria EXAM Physical Exam Const Vital Signs: 04/19/21 10:45 04/19/21 10:56 04/19/21 11:28 Temperature 97.4 F L 97.4 F L Temperature Source Temporal Temporal Pulse Rate 73 73 Respiratory Rate 22 H 22 H Respiratory Effort Respiratory Depth Respiratory Pattern Blood Pressure 139/76 H 139/76 H Blood Pressure Mean 97 97 Pulse Ox 95 95 Pulse Ox [AMBULATING on Room Air] 88 Pulse Ox [At REST on Room Air] 95 Oxygen Delivery Method Room Air Room Air 04/19/21 11:29 Temperature Temperature Source Pulse Rate Respiratory Rate Respiratory Effort Normal Non-Labored Respiratory Depth Normal Respiratory Pattern Normal Blood Pressure Blood Pressure Mean Pulse Ox Pulse Ox [AMBULATING on Room Air] Pulse Ox [At REST on Room Air] Oxygen Delivery Method Room Air Positive well nourished and well developed General Appearance ED: well developed HEENT Reports normocephalic, head/scalp atraumatic, TM's clear and moist mucous membranes Negative for trauma Tympanic Membrane ED: Yes TM's clear Eyes PERRL and EOMs intact bilaterally Neck no lymphadenopathy, supple and no JVD Resp clear to auscultation bilaterally Resp Narrative: Patient is tachypneic Cardio regular rate, regular rhythm and no murmurs GI normal to inspection, nondistended, normoactive bowel sounds and non-tender Palpation: soft Back/Spine no CVA tenderness and normal ROM Extremity normal to inspection General Extremety ED: Negative for edema General Extremity: Negative for edema Neuro oriented x3 and CN's II-XII intact bilaterally Sensorium / Orientation: alert Motor Exam: strength 5/5 throughout Psych mental status grossly normal Mood & Affect: Negative for depressed or tearful Skin no rashes or lesions noted and no wounds MDM MDM MDM Narrative Medical decision making narrative: Patient's blood work shows a normal lactic acid. Creatinine 1.01. White count 3.2. Interpretation of the chest x-ray is left lower areas of pneumonitis. With ambulation the patient drops to 88% on 1 test at 85 at the very end of another test. We will start him on Decadron. We will see if we can get him set up for home oxygen. Return if worsening or concerns Lab Data Attestation: I reviewed the patient's lab results. Labs: Laboratory Results - last 24 hr 04/19/21 04/19/21 04/19/21 11:25 11:25 11:25 WBC 3.2 L RBC 4.62 Hgb 14.3 Hct 43.7 MCV 94.6 H MCH 31.0 MCHC 32.7 RDW Std Deviation 41.7 RDW Coeff of Annabella 11.9 Plt Count 122 L MPV 10.1 Immature Gran % (Auto) 0.300 Neut % (Auto) 67.5 Lymph % (Auto) 16.1 L White % (Auto) 15.8 H Eos % (Auto) 0.3 Baso % (Auto) 0.0 Absolute Neuts (auto) 2.1 Absolute Lymphs (auto) 0.51 L Nucleated RBC % 0 Differential Comment COMMENT Diff Path Review May foll Sodium 131 L Potassium 4.1 Chloride 93 L Carbon Dioxide 34.0 H Anion Gap 4 L BUN 11 Creatinine 1.01 Estim Creat Clear Calc 70.27 Est GFR (MDRD) Af Amer 94 Est GFR (MDRD) Non-Af 78 BUN/Creatinine Ratio 10.9 Glucose 107 H Lactic Acid 1.1 Calcium 8.3 L Total Bilirubin 0.60 AST 102 H ALT 70 H Alkaline Phosphatase 79 Troponin I High Sens 29 Total Protein 6.9 Albumin 3.1 L Globulin 3.8 Albumin/Globulin Ratio 0.8 L Radiography Diagnostic Testing: Clinical Impression(s) from Imaging Studies Chest X-Ray 04/19/21 11:45 IMPRESSION: Increased markings in the left lower lobe. Early left lower lobe infiltrate should be ruled out. Electronically Signed: Paras Crisostomo MD at 12:01 EST , Discharge Plan Triage Chief Complaint: Shortness of Breath ED Provider: Da Lord Dx/Rx/DC Orders Clinical Impression: COVID-19, Acute dyspnea, Acute hypoxemic respiratory failure due to COVID-19 Instructions: Coronavirus Disease 2019 (COVID-19): Caring for Yourself or Others Prescriptions: New dexamethasone 6 MG tablet 6 mg PO DAILY Qty: 7 RF: 0 No Action glucosamine-chondroitin 900 mg tablet PO RF: 0 fluticasone propionate [Flonase Allergy Relief] 50 mcg/actuation spray,suspension 1 spray INTRANASAL DAILY PRNRF: 0 ginkgo biloba 40 mg tablet 40 mg PO DAILY RF: 0 saw palmetto 160 mg capsule 160 mg PO DAILY RF: 0 melatonin 10 mg capsule 10 mg PO HS PRNRF: 0 Xarelto 20 mg tablet 20 mg PO DAILY RF: 0 aspirin 81 MG tablet,chewable 81 mg PO DAILY@0800 RF: 0 polysaccharide iron complex 150 MG capsule 150 mg PO DAILYCM Qty: 30 RF: 0 acetaminophen 500 MG tablet 1,000 mg PO Q8H PRN (Reason: Mild Pain (-05/27)) RF: 0 multivitamin with folic acid 1 TABLET tablet 1 tab PO DAILYCM RF: 0 atorvastatin 40 MG tablet 40 mg PO QHS Qty: 30 RF: 0 levothyroxine 175 MCG tablet 175 mcg PO DAILY Qty: 30 RF: 0 pantoprazole 20 MG tablet 20 mg PO DAILY Qty: 30 RF: 0 albuterol sulfate 1 INHALER inhaler 1 puff INHALATION Q4H PRN PRN (Reason: Shortness Of Breath) Qty: 1 RF: 0 metoprolol tartrate 25 MG tablet 25 mg PO BID Qty: 60 RF: 0 Primary Care Provider: Cornel Abreu Referrals: Cornel Abreu MD [Primary Care Provider] - As Needed Disposition Disposition: Home, Self Care
[2021-04-19 11:28] VITALS: BP 139/76; PULSE 73; RESP 22; TEMP 36.3; O2SAT 94; O2SAT 95
[2021-04-19 11:40] LABS: Absolute Lymphocyte Count 0.51 X10^3/uL (0.83-4.51); Absolute Neutrophil Count 2.1 X10^3/uL (2.0-7.7); Eosinophil# 0.01 X10^3/uL; Eosinophils% 0.3 % (0-5); Hematocrit 43.7 % (40-54); Hemoglobin 14.3 g/dL (13.0-16.5); Lymphocyte # 0.51 X10^3/ul (0.83-4.51); Lymphocyte % 16.1 % (19-41); Mean Corp Hgb Conc 32.7 g/dL (32-36); Mean Corpuscular Volume 94.6 fL (80-94); Mean Platelet Vol. 10.1 fl (6.2-12.0); Monocyte% 15.8 % (0-10); NRBC Flagged by Analyzer 0 % (0-5); Neutrophil # 2.14 X10^3/uL (2.7-7.7); Neutrophil % 67.5 % (47-70); POSITIVE DIFFERENTIAL YES; Platelet Count 122 K/mm3 (150-450); RBC Distribution Width CV 11.9 % (11.6-14.6); RBC Distribution Width SD 41.7 fl (35.1-43.9); Red Blood Count 4.62 M/mm3 (4.6-6.2); White Blood Count 3.2 K/mm3 (4.4-11.0)
[2021-04-19 11:41] LABS: Differential Indicated SCAN CRITERIA MET
--- NOTE | 2021-04-19 11:45 | RAD_ITS ---
STUDY: X-RAY CHEST REASON FOR EXAM: Male, 71 years old. cough/covid TECHNIQUE: Single AP portable view of the chest. COMPARISON: Comparison is made with prior study 11/14/2017. FINDINGS: EKG electrodes are seen. Stable elevation of the right hemidiaphragm. Mild increased markings with areas of confluence in the left lower lobe. Early left lower lobe infiltrate should be ruled out. There is no demonstrated pleural abnormality. Sternal cerclage wires and vascular clips are present from a prior sternotomy and coronary artery bypass graft procedure (CABG). Normal mediastinum and tiki. Normal visualized pulmonary arteries. Normal visualized aortic arch and descending thoracic aorta. There are degenerative changes of the visualized thoracic spine. Normal visualized ribs, clavicles, and shoulders. There is no demonstrated abnormality of the visualized soft tissue structures of the upper abdomen. RAD/Chest 1 View (Portable) IMPRESSION: Increased markings in the left lower lobe. Early left lower lobe infiltrate should be ruled out. Electronically Signed: Paras Crisostomo MD at 12:01 EST ,
[2021-04-19 11:57] LABS: ALB/GLOB Ratio 0.8 RATIO (0.9-2.4); AST(SGOT) 102 U/L (15-37); Alanine Aminotransfer ALT/SGPT 70 U/L (16-61); Albumin, Serum 3.1 g/dL (3.2-5.0); Alkaline Phosphatase 79 U/L (45-117); Anion Gap 4 (5-15); BUN 11 mg/dL (7-18); BUN/Creat Ratio 10.9 RATIO (10-20); Calcium,Total 8.3 mg/dL (8.5-10.1); Chloride 93 mmol/L (98-107); Creatinine, Serum 1.01 mg/dL (0.70-1.30); EST Glomerular Filtration Rate 78 mL/min (>60); Est Glom Filt Rate - Afr Amer 94 mL/min (>60); Estimated Creatinine Clearance 70.27 ml/min; Globulin 3.8 g/dL (2.2-4.2); Glucose 107 mg/dL (74-106); Potassium 4.1 mmol/L (3.5-5.1); Protein, Total 6.9 g/dL (6.4-8.2); Sodium Level 131 mmol/L (136-145); Troponin-I HS 29 pg/mL (3.0-78.0)
[2021-04-19 12:01] LABS: Lactic Acid 1.1 mmol/L (0.4-1.9)
--- NOTE | 2021-04-19 13:00 | CASEMGMT ---
Patient qualifies for home oxygen at 2LPM with exertion. Order faxed to [employer] and call placed to [employer] to confirm receipt. Portable tank provided from ER stock. RT to instruct.
--- NOTE | 2021-04-19 13:25 | CASEMGMT ---
RT staff contacted at ext [phone] to request home oxygen instruct. -MIRIAM Glez CM
--- NOTE | 2021-04-20 11:55 | CASEMGMT ---
MIRIAM BARRETT ED COVID Home O2 follow-up: MIRIAM BARRETT placed call to patient's telephone number listed on demographics, no answer. Voice message with call back information left to requests return call if any questions, concerns or needs. MIRIAM Patel CM
[2021-04-21 09:44] LABS: Pathologist Review Reviewed
== END 2021-04-19 14:16 | disposition home or self-care (01) ==
PROVIDERS: Emergency Provider Emergency Medicine; PCP Family Medicine; Visit Provider Emergency Medicine
DX: U07.1 COVID-19 (principal); J44.9 Chronic obstructive pulmonary disease, unspecified; I27.21 Secondary pulmonary arterial hypertension; J96.01 Acute respiratory failure with hypoxia; J98.6 Disorders of diaphragm; Z87.891 Personal history of nicotine dependence; J12.82 Pneumonia due to coronavirus disease 2019; E78.5 Hyperlipidemia, unspecified; I10 Essential (primary) hypertension; I25.10 Atherosclerotic heart disease of native coronary artery without angina pectoris; Z79.01 Long term (current) use of anticoagulants; Z79.899 Other long term (current) drug therapy; Z86.718 Personal history of other venous thrombosis and embolism; E03.9 Hypothyroidism, unspecified; I25.2 Old myocardial infarction; Z79.82 Long term (current) use of aspirin; Z79.890 Hormone replacement therapy
CPT/HCPCS: 71045; 80053; 83605; 84484; 85025; 93005; 99284; A4216

== ENCOUNTER 2021-05-19 22:19 | Emergency (ER) | payer MEDICARE, SELFPAY ==
[2021-05-19 22:22] VITALS: BP 163/90; PULSE 89; RESP 18; TEMP 36.3; O2SAT 95; BMI 31.8
--- NOTE | 2021-05-19 22:34 | ED.RN ---
[place] AT BEDSIDE PREFORMING ANOSCOPE, PT TOLERATED WELL
--- NOTE | 2021-05-19 22:43 | EDS_ITS ---
HPI HPI - GI History of Present Illness Chief Complaint: GI Bleed Detail of Chief Complaint: Bright red blood per rectum Informant: patient Abdominal Pain/Flank Pain Onset: Today Context: Sudden Onset Timing: Intermittent Quality: - (Painless) Nausea/Vomiting/Emesis GI Symptom: Negative for Nausea and Vomiting Diarrhea/Melena/Hematochezia GI Symptom: Positive for Hematochezia; Negative for Diarrhea and Melena Onset: Today Episodes: 2 Associated Symptoms Associated Symptoms: Negative for Dysuria, Frequency and Hematuria LMP: Not applicable Narrative Narrative: Patient is a 71-year-old male on anticoagulant for DVT post Covid vaccine 9 months ago. Patient presents with bright red blood per rectum. He has had hard stool recently. He denies diarrhea. He denies liver disease. He denies rectal pain. He states his stool was brown and there was blood on the surface of the stool and noted blood on the toilet paper. He denies orthostatic symptoms. He has no other complaints. Prior similar symptoms: No Recent Illness/Hospitalization: No PFSH PFSH Medical History Atherosclerotic heart disease of [place] coronary artery without angina pectoris COPD (chronic obstructive pulmonary disease) Deep vein thrombosis, lower left extremity (09/09/20) Essential (primary) hypertension History of non-ST elevation myocardial infarction (NSTEMI) (11/14/17) Hyperlipidemia Hypothyroidism Non-STEMI (non-ST elevated myocardial infarction) Right hemidiaphragm palsy Secondary pulmonary arterial hypertension Home Medications aspirin 81 mg PO DAILY@0800 11/26/17 [History Last Taken Unknown] acetaminophen 1,000 mg PO Q8H PRN tab 12/05/17 [Rx Last Taken Unknown] albuterol sulfate 1 puff INHALATION Q4H PRN PRN #1 inhaler 12/05/17 [Rx Last Taken Unknown] atorvastatin 40 mg PO QHS #30 tab 12/05/17 [Rx Last Taken Unknown] levothyroxine 175 mcg PO DAILY #30 tab 12/05/17 [Rx Last Taken Unknown] metoprolol tartrate 25 mg PO BID #60 tab 12/05/17 [Rx Last Taken Unknown] multivitamin with folic acid 1 tab PO DAILYCM tab 12/05/17 [Rx Last Taken Unknown] pantoprazole 20 mg PO DAILY #30 tab 09/18/18 [Rx Last Taken Unknown] polysaccharide iron complex 150 mg PO DAILYCM #30 cap 12/05/17 [Rx Last Taken Unknown] antiarthritic combination no.2 900 mg tablet mg PO tab 04/27/18 [History Last Taken Unknown] ginkgo biloba 40 mg tablet 40 mg PO DAILY tab 12/10/18 [History Last Taken Unknown] saw palmetto 160 mg capsule 160 mg PO DAILY cap 12/10/18 [History Last Taken Unknown] melatonin 10 mg capsule 10 mg PO HS PRN 06/17/19 [History Last Taken Unknown] fluticasone propionate 50 mcg/actuation nasal spray,suspension 1 spray INTRANASAL DAILY PRN 09/10/20 [History Last Taken Unknown] rivaroxaban 20 mg tablet 20 mg PO DAILY tab 03/08/21 [History Last Taken Unknown] dexamethasone 6 mg PO DAILY #7 tab 04/19/21 [Rx Last Taken Unknown] Allergy/AdvReac Type Severity Reaction Status Date / Time No Known Allergies Allergy Verified 04/19/21 10:47 Surgical History H/O coronary artery bypass surgery (11/16/17) Social History (Updated 05/19/21 @ 22:[address] Kurtis Canada MD) household members: spouse Smoking Status: Former smoker substance use type: does not use ROS ROS ED Constitutional Constitutional ED: Denies chills, fever(s), subjective or sweats Gastrointestinal Gastrointestinal: Reports constipation; Denies abdominal pain, diarrhea, melena, nausea or vomiting Musculoskeletal Musculoskeletal: Denies back pain or neck pain Hematologic/Lymphatic Hematologic/Lymphatic: Reports easy bruising; Denies easy bleeding or lymphadenopathy EXAM Physical Exam Const Vital Signs: 05/19/21 22:22 Temperature 97.4 F L Temperature Source Temporal Pulse Rate 89 Respiratory Rate 18 Blood Pressure 163/90 H Blood Pressure Mean 114 Pulse Ox 95 Oxygen Delivery Method Room Air Positive well nourished, well developed and obese General Appearance ED: well developed and NAD; Negative for pallor Nutritional Appearance: obese HEENT normocephalic and atraumatic Eyes PERRL and EOMs intact bilaterally General Eye ED: Negative for pale conjunctiva Resp normal respiratory effort and clear to auscultation bilaterally Cardio regular rate, regular rhythm, S1 normal heart sound, S2 normal heart sound and no murmurs GI non-tender, non-distended and no masses GI Narrative: On rectal exam there was blood noted on the perianal area. There is no visible hemorrhoid. There is no fissure or fistula noted. Rectal exam revealed no tenderness or palpable masses. Please see procedure note Auscultation: normoactive bowel sounds Palpation: soft Neuro Sensorium / Orientation: alert, oriented to person, oriented to place and oriented to time Psych mental status grossly normal and thought process normal Skin no wounds Skin Narrative: Venous stasis dermatitis right and left leg General Skin Exam: Negative for jaundice or pallor Lesions: no lesions Rashes: no rashes MDM MDM MDM Narrative Medical decision making narrative: History is suggestive of hemorrhoid. Since one was not visualized anoscopy was performed. Procedures Other Procedures Procedure(s): Patient was left decubitus position. Anoscopy was performed. Endoscope was inserted without difficulty. External hemorrhoid was noted 2:00 lithotomy position. Stool was brown. There was no active bleeding. Discharge Plan Triage Chief Complaint: GI Bleed ED Provider: Kurtis Canada Dx/Rx/DC Orders Clinical Impression: External hemorrhoid, bleeding Instructions: ED Hemorrhoids Prescriptions: No Action glucosamine-chondroitin 900 mg tablet PO RF: 0 fluticasone propionate [Flonase Allergy Relief] 50 mcg/actuation spray,suspension 1 spray INTRANASAL DAILY PRNRF: 0 ginkgo biloba 40 mg tablet 40 mg PO DAILY RF: 0 saw palmetto 160 mg capsule 160 mg PO DAILY RF: 0 melatonin 10 mg capsule 10 mg PO HS PRNRF: 0 Xarelto 20 mg tablet 20 mg PO DAILY RF: 0 aspirin 81 MG tablet,chewable 81 mg PO DAILY@0800 RF: 0 polysaccharide iron complex 150 MG capsule 150 mg PO DAILYCM Qty: 30 RF: 0 acetaminophen 500 MG tablet 1,000 mg PO Q8H PRN (Reason: Mild Pain ([id number])) RF: 0 multivitamin with folic acid 1 TABLET tablet 1 tab PO DAILYCM RF: 0 atorvastatin 40 MG tablet 40 mg PO QHS Qty: 30 RF: 0 levothyroxine 175 MCG tablet 175 mcg PO DAILY Qty: 30 RF: 0 pantoprazole 20 MG tablet 20 mg PO DAILY Qty: 30 RF: 0 albuterol sulfate 1 INHALER inhaler 1 puff INHALATION Q4H PRN PRN (Reason: Shortness Of Breath) Qty: 1 RF: 0 metoprolol tartrate 25 MG tablet 25 mg PO BID Qty: 60 RF: 0 dexamethasone 6 MG tablet 6 mg PO DAILY Qty: 7 RF: 0 Primary Care Provider: Cornel Abreu Referrals: Cornel Abreu MD [Primary Care Provider] - As Needed Disposition Disposition: Home, Self Care Discharge Date/Time: 05/19/21 23:00
== END 2021-05-19 23:00 | disposition home or self-care (01) ==
PROVIDERS: Emergency Provider Emergency Medicine; PCP Family Medicine; Visit Provider Emergency Medicine
DX: K92.2 Gastrointestinal hemorrhage, unspecified (principal); J44.9 Chronic obstructive pulmonary disease, unspecified; I10 Essential (primary) hypertension; I25.10 Atherosclerotic heart disease of native coronary artery without angina pectoris; R11.2 Nausea with vomiting, unspecified; E78.5 Hyperlipidemia, unspecified; R19.7 Diarrhea, unspecified; K64.4 Residual hemorrhoidal skin tags; Z86.718 Personal history of other venous thrombosis and embolism; Z79.899 Other long term (current) drug therapy; I25.2 Old myocardial infarction; E03.9 Hypothyroidism, unspecified; Z79.82 Long term (current) use of aspirin; Z79.890 Hormone replacement therapy; Z79.01 Long term (current) use of anticoagulants; Z87.891 Personal history of nicotine dependence
CPT/HCPCS: 46600; 99284